=== PATIENT | female | born 1930 | race Caucasian/White ===

== ENCOUNTER 2016-06-09 12:00 | Emergency (ER) | payer OTHER ==
--- NOTE | 2016-06-09 12:16 | ED Physician Documentation ---
General Adult - HISTORIAN Historian: patient - HPI Stated Complaint: fall, back & hip pain Chief Complaint: General Adult Onset: days ago (1) Timing: still present Severity: moderate Further Comments: yes (Pt is an 86 yo female who ambulates with walker and fell at home yesterday. Pt c/o LBP and b/l hip pain.) - ROS CONST: no problems EYES/ENT: none CVS/RESP: none GI/: none MS/SKIN/LYMPH: other (skin tear L elbow s/p fall) - PAST HX Past History: other (Anxiety, COPD, GERD, HTN, Thyroid dz, ) Surgeries/Procedures: hysterectomy, other (appendectomy, thyroidectomy) Allergies/Adverse Reactions: Allergies Allergy/AdvReac Type Severity Reaction Status Date / Time codeine [Codeine] Allergy Severe Hallucinati Verified 08/06/15 12:07 ons Home Medications: Ambulatory Orders Medication Instructions Recorded Aspirin [Westley] 81 mg PO DAILY 30 Days 08/28/12 Ipratropium/Albuterol Sulfate 3 ml INH QID 08/06/15 [Duoneb] Pramipexole Di-HCl [Mirapex] 0.125 mg PO PM 08/06/15 - SOCIAL HX Smoking History: cigarettes - FAMILY HX Family History: No - VITAL SIGNS Vital Signs: Vital Signs Temp Pulse Resp BP Pulse Ox 208/102 08/06/15 12:25 - REVIEWED ASSESSMENTS Nursing Assessment Reviewed: Yes Vitals Reviewed: Yes Progress - Progress Progress: X-ray L-spine: 1. Spondylosis. 2. Levoscoliosis. 3. Compression fracture of T11 that appears old. 4. Degenerative anterolisthesis at L3-4. Rx Austin (5/325) 1-2 po q 4-6h prn # 15 Skin tear dressed in ER. General Adult Physical Exam - PHYSICAL EXAM GENERAL APPEARANCE: moderate distress EENT: eye inspection normal NECK: normal inspection, supple RESPIRATORY: no resp distress, chest non-tender, breath sounds normal CVS: reg rate & rhythm, heart sounds normal ABDOMEN: soft, no organomegaly, normal bowel sounds BACK: normal inspection, other (tenderness over lumbar spine; ) SKIN: other (small skin tear L elbow) EXTREMITIES: other (hips FROM b/l; no abnormal rotation; ) NEURO: oriented X3, motor nml, sensation nml, other (DTR's wnl) Discharge Clincal Impression: Low back pain Qualifiers: Chronicity: acute Back pain laterality: unspecified Sciatica presence: without sciatica Qualified Code(s): M54.5 - Low back pain Skin tear of left elbow without complication Qualifiers: Encounter type: initial encounter Qualified Code(s): S51.002A - Unspecified open wound of left elbow, initial encounter Fall Qualifiers: Encounter type: initial encounter Qualified Code(s): W19.XXXA - Unspecified fall, initial encounter Referrals: Joie Gale PRN [Primary Care Provider] - Additional Instructions: Rx Austin (). Take one or two tablets by mouth every 4 to 6 hrs as needed for moderate to severe pain. Home Medications: Ambulatory Orders Aspirin [Westley] 81 mg PO DAILY 30 Days 08/28/12 Ipratropium/Albuterol Sulfate [Duoneb] 3 ml INH QID 08/06/15 Pramipexole Di-HCl [Mirapex] 0.125 mg PO PM 08/06/15 Condition: Stable Disposition: 01 HOME, SELF-CARE Decision to Admit: NO Decision Time: 12:55
[2016-06-09 13:21] VITALS: BP 135/79
--- NOTE | 2016-06-09 13:23 | Diagnostic Imaging Report ---
[facility] [address] [facility].[address] [address] Report Submission Date: Jun 09, 2016 12:43:29 PM [employer] Patient Study Name: BASIM PENA Date: Jun 09, 2016 12:29:11 PM [employer] MRN: [id number] Modality Type: CR Gender: F Description: SPINE : [birth year] Institution: [facility] Physician: LITZY KENNY Lumbar spine - three views Clinical history: Fall on Friday. Low back pain. Findings: Examination lumbar spine in AP, lateral and lateral coned-down views demonstrates degenerative changes and levoscoliosis. The apex of the scoliosis is at L1-2. The disc spaces are narrowed at L1-2 and L2-3. Degenerative anterolisthesis at L3-4 measures 8 mm. Degenerative changes are seen in the visualized lower thoracic spine with compression fracture of T11 that appears to be old. Extensive vascular calcification is demonstrated. Impression: 1. Spondylosis. 2. Levoscoliosis. 3. Compression fracture of T11 that appears old. 4. Degenerative anterolisthesis at L3-4. Electronically signed on Jun 09, 2016 12:43:29 PM [employer]ER by: Derek NEVAREZ
== END 2016-06-09 13:19 | disposition home or self-care (01) ==
LOC: ED 12:00
DX: M54.5 Low back pain (principal); S51.002A Unspecified open wound of left elbow, initial encounter; W19.XXXA Unspecified fall, initial encounter; Y93.9 Activity, unspecified; Y99.9 Unspecified external cause status
CPT/HCPCS: 72100; 99282

== ENCOUNTER 2016-08-31 23:08 | Emergency (ER) | payer OTHER ==
--- NOTE | 2016-08-31 23:13 | ED Physician Documentation ---
General Adult - HISTORIAN Historian: patient, paramedics - HPI Stated Complaint: SOB Chief Complaint: General Adult Additional Information: EMS called to [facility] because pt said to be SOB. Pulse ox 82% on ambient air. Pt given Duoneb in ambulance. Pulse ox 98% on ambient air. Says her mouth is dry. - ROS CONST: denies: fever - PAST HX Past History: COPD Allergies/Adverse Reactions: Allergies Allergy/AdvReac Type Severity Reaction Status Date / Time codeine [Codeine] Allergy Severe Hallucinati Verified 08/31/16 23:24 ons Home Medications: Ambulatory Orders Medication Instructions Recorded Aspirin [Westley] 81 mg PO DAILY 30 Days 08/28/12 Ipratropium/Albuterol Sulfate 3 ml INH QID 08/06/15 [Duoneb] Pramipexole Di-HCl [Mirapex] 0.125 mg PO PM 08/06/15 Levothyroxine Sodium [Unithroid] 100 mcg PO QDAY 08/31/16 - SOCIAL HX Smoking History: non-smoker - FAMILY HX Family History: No - VITAL SIGNS Vital Signs: Vital Signs Temp Pulse Resp BP Pulse Ox 135/79 06/09/16 13:19 - REVIEWED ASSESSMENTS Nursing Assessment Reviewed: Yes Vitals Reviewed: Yes Progress - Progress Progress: Portable chest History: Shortness of breath and COPD Findings: The lungs are hyperinflated without infiltrate or pleural effusion. A calcified left lung granuloma is present. Heart size is normal. Impression: Hyperinflation. Electronically signed on Aug 31, 2016 11:51:00 PM CDT by: Leandro Torrez [id number]. remains at 94% on room air. Labs good. Family has duonebs at home. ED Results Lab/Radiology - Orders Orders: ED Orders Category Date Time Status Continuous EKG monitoring Q1H Care 08/31/16 23:10 Ordered Continuous Pulse Oximetry Q1H Care 08/31/16 23:[address] Saline Lock/IV Now Care 08/31/16 23:10 Ordered CHEST 1 VIEW [RAD] Stat Exams 08/31/16 Ordered CBC/PLATELET/DIFF Routine Lab 08/31/16 Ordered CMP Routine Lab 08/31/16 Ordered UA [URINALYSIS] Routine Lab 08/31/16 Ordered 0.9 % Sodium Chloride [Normal Saline] 1,000 ml Med 08/31/16 23:30 Ordered IV 1T EKG WITH COMPARISON Stat Ther 08/31/16 Ordered General Adult Physical Exam - PHYSICAL EXAM GENERAL APPEARANCE: no distress EENT: eye inspection normal, ENT inspection normal, pharynx normal, other (lips dry) NECK: normal inspection, supple RESPIRATORY: no resp distress, breath sounds normal (decreased throughout), rales (scattered) CVS: reg rate & rhythm, heart sounds normal ABDOMEN: soft, normal bowel sounds RECTAL: deferred BACK: normal inspection SKIN: warm/dry, normal color EXTREMITIES: no evidence of injury, no edema NEURO: CN's nml as tested, motor nml, sensation nml Discharge Clincal Impression: copd Additional Instructions: Drink plenty of water. Follow up with your provider as needed. Home Medications: Ambulatory Orders Aspirin [Westley] 81 mg PO DAILY 30 Days 08/28/12 Ipratropium/Albuterol Sulfate [Duoneb] 3 ml INH QID 08/06/15 Pramipexole Di-HCl [Mirapex] 0.125 mg PO PM 08/06/15 Levothyroxine Sodium [Unithroid] 100 mcg PO QDAY 08/31/16 Condition: Good Disposition: 01 HOME, SELF-CARE Decision to Admit: NO Decision Time: 00:34
[2016-08-31] MEDS ORDERED: 0.9 % SODIUM CHLORIDE 1,000 ML IV SCH (23:30)
[2016-09-01 00:07] LABS: BASOPHILS % 0.2 (0.0-1.5); EOSINOPHILS % 1.8 % (0.0-6.8); MEAN CORPUSCULAR HEMOGLOBIN 29.8 pg (28.0-34.0); MEAN CORPUSCULAR VOLUME 91.4 fl (80.0-100.0); MONOCYTES % 6.2 % (0.0-11.0)
[2016-09-01 00:26] LABS: eGFR (African) > 60; eGFR (Non-African) > 60
--- NOTE | 2016-09-01 00:49 | Diagnostic Imaging Report ---
[facility] [address] [facility].[address] [address] Report Submission Date: Aug 31, 2016 11:51:00 PM CDT Patient Study Name: BASIM PENA Date: Aug 31, 2016 11:31:12 PM CDT MRN: [id number] Modality Type: CR Gender: F Description: CHEST : [birth year] Institution: [facility] Physician: RENEE SEO - ER Portable chest History: Shortness of breath and COPD Findings: The lungs are hyperinflated without infiltrate or pleural effusion. A calcified left lung granuloma is present. Heart size is normal. Impression: Hyperinflation. Electronically signed on Aug 31, 2016 11:51:00 PM CDT by: Leandro NEVAREZ
[2016-09-01 02:12] VITALS: BP 145/67
== END 2016-09-01 00:20 | disposition home or self-care (01) ==
LOC: ED 23:08
DX: J44.9 Chronic obstructive pulmonary disease, unspecified (principal)
CPT/HCPCS: 71010; 80053; 85025; 96360; 99283; 99284

== ENCOUNTER 2017-01-02 13:09 | Emergency (ER) | payer OTHER ==
[2017-01-02 13:22] LABS: BASOPHILS % 0.3 (0.0-1.5); EOSINOPHILS % 1.2 % (0.0-6.8); MEAN CORPUSCULAR HEMOGLOBIN 30.2 pg (28.0-34.0); MONOCYTES % 4.2 % (0.0-11.0); NEUTROPHILS # 9.6 # k/uL (1.4-7.7)
[2017-01-02 13:40] LABS: eGFR (African) > 60; eGFR (Non-African) > 60
--- NOTE | 2017-01-02 14:38 | ED Physician Documentation ---
Dyspnea - HISTORIAN Historian: patient - HPI Stated Complaint: Shortness of Breath Chief Complaint: Dyspnea Onset: days ago Duration: worse Severity: moderate Exacerbated By: coughing Further Comments: yes (86 year old female patient brought in via EMS with complaints of dyspnea. Patient was given albuterol and duoneb in route. RA Sats 96%. Patient reports symptoms started yesterday and have become worse.) - ROS CONST: recent illness (COPD), weakness EYES/ENT: none GI/: none NEURO/PSYCH: denies: headache MS/SKIN/LYMPH: none - PAST HX Lung Disease: COPD Other History: other (hypothyroidism) Allergies/Adverse Reactions: Allergies Allergy/AdvReac Type Severity Reaction Status Date / Time codeine [Codeine] Allergy Severe Hallucinati Verified 08/31/16 23:24 ons Home Medications: Ambulatory Orders Medication Instructions Recorded Aspirin [Westley] 81 mg PO DAILY 30 Days tab.chew 08/28/12 Ipratropium/Albuterol Sulfate 3 ml INH QID 08/06/15 [Duoneb] Pramipexole Di-HCl [Mirapex] 0.125 mg PO PM 08/06/15 Levothyroxine Sodium [Unithroid] 100 mcg PO QDAY 08/31/16 Prednisone 30 mg PO DAILY #12 tablet 01/02/17 - SOCIAL HX Smoking History: cigarettes - FAMILY HX Family History: denies: none - VITAL SIGNS Vital Signs: Vital Signs Temp Pulse Resp BP Pulse Ox 97.1 F L 99 H 32 H 185/101 96 01/02/17 13:10 01/02/17 13:10 01/02/17 13:10 01/02/17 13:10 01/02/17 14:15 - REVIEWED ASSESSMENTS Nursing Assessment Reviewed: Yes Vitals Reviewed: Yes Progress - Progress Progress: Lab and xray results reviewed with patient and family. Daughter cannot recall last steroid usage. Will given IV steroid dose in ER and short burst of prednisone. Family reports continued weight loss, patient will not eat, have tried multiple protein shakes and ensure. Working with PCP on weight gain. RA Sats 93-94%. ED Results Lab/Radiology - Lab Results Lab Results: Lab Results 01/02/17 01/02/17 13:20 13:20 WBC 12.00 K/ul K/ul (4.00-12.00) RBC 4.81 M/ul M/ul (3.90-5.20) Hgb 14.5 g/dL g/dL (12.0-16.0) Hct 43.3 % % (34.5-46.5) MCV 90.0 fl fl (80.0-100.0) MCH 30.2 pg pg (28.0-34.0) MCHC 33.6 g/dL g/dL (30.0-36.0) RDW 13.5 % % (11.3-14.3) Plt Count 251 K/mm3 K/mm3 (130-400) Neut % (Auto) 79.8 % H % (39.0-79.0) Lymph % (Auto) 13.1 % L % (16.0-50.0) Perry % (Auto) 4.2 % % (0.0-11.0) Eos % (Auto) 1.2 % % (0.0-6.8) Baso % (Auto) 0.3 (0.0-1.5) Neut # (Auto) 9.6 # k/uL H # k/uL (1.4-7.7) Lymph # (Auto) 1.6 # k/uL # k/uL (0.6-4.0) Perry # (Auto) 0.5 # k/uL # k/uL (0.0-0.9) Eos # (Auto) 0.1 # k/uL # k/uL (0.0-0.6) Baso # (Auto) 0.0 # k/uL # k/uL (0.0-0.5) Reactive Lymphs % 1.4 % % (0.0-5.0) Reactive Lymphs # 0.2 # k/uL # k/uL (0.0-0.8) Sodium 133 mmol/L L mmol/L (136-145) Potassium 4.2 mmol/L mmol/L (3.5-5.0) Chloride 99 mmol/L mmol/L (98-110) Carbon Dioxide 25 mmol/L mmol/L (20-32) BUN 17 mg/dL mg/dL (10-26) Creatinine 0.6 mg/dL mg/dL (0.4-1.5) Estimated Creat Clear 60 Est GFR ( Amer) > 60 (60 - ) Est GFR (Non-Af Amer) > 60 (60 - ) Glucose 104 mg/dL H mg/dL (70-99) Calcium 9.6 mg/dL mg/dL (8.5-10.5) Total Bilirubin 0.8 mg/dL mg/dL (0.2-1.2) AST 55 U/L H U/L (0-41) ALT 37 U/L U/L (0-45) Alkaline Phosphatase 102 U/L U/L (46-116) Total Protein 7.2 g/dL g/dL (6.0-8.5) Albumin 4.8 g/dL g/dL (3.0-5.5) - Radiology Radiology Impressions: Chest -one view CLINICAL HISTORY: Dyspnea. FINDINGS: Examination of the chest single portable AP view 01/02/2017 1328 hr with comparison to examination of 08/31/2016 demonstrates the lungs to be hyperinflated but clear. Cardiac silhouette is enlarged and the aorta is atherosclerotic. Monitor leads superimpose the chest. IMPRESSION: Emphysema. Aortic atherosclerosis. No significant change. - Orders Orders: ED Orders Category Date Time Status Continuous Pulse Oximetry Q30M Care 01/02/17 13:[address] IV Lock 1T Care 01/02/17 13:15 Completed CHEST 1 VIEW [RAD] Stat Exams 01/02/17 13:15 Ordered CBC/PLATELET/DIFF Stat Lab 01/02/17 13:20 Completed CMP Stat Lab 01/02/17 13:20 Completed Oxygen Daily Oxygen 01/02/17 13:15 Ordered Dyspnea Physical Exam - EXAM General Appearance: moderate distress, other (frail, thin ) EENT: eye inspection normal, ENT inspection normal, pharynx normal, no signs of dehydration, JACKIE, no nystagmus, TM's nml Respiratory: no resp. distress, breath sounds nml, no pain on inspiration, speaks full sentences, accessory muscle use, other (mildly labored respirations) CVS: reg. rate & rhythm, no murmur, no gallop, no friction rub, pulses full, pulses equal Abdomen: non-tender, no organomegaly, no distention, no ascites Skin: no rash, warm, nml palp., dry Extremities: non-tender, normal range of motion, no evidence of injury, no edema , other (muscle wasting) Neuro/Psych: oriented x3, motor nml, sensation nml, mood/affect nml Discharge Clincal Impression: COPD exacerbation Prescriptions: Prednisone 30 mg PO DAILY #12 tablet Referrals: Joie Gale PRN [Primary Care Provider] - 2 Days Additional Instructions: Start your prednisone tomorrow. Make a follow up appointment with Taty for Friday. Home Medications: Ambulatory Orders Aspirin [Westley] 81 mg PO DAILY 30 Days tab.chew 08/28/12 Ipratropium/Albuterol Sulfate [Duoneb] 3 ml INH QID 08/06/15 Pramipexole Di-HCl [Mirapex] 0.125 mg PO PM 08/06/15 Levothyroxine Sodium [Unithroid] 100 mcg PO QDAY 08/31/16 Prednisone 30 mg PO DAILY #12 tablet 01/02/17 Condition: Stable Disposition: 01 HOME, SELF-CARE Decision to Admit: NO Decision Time: 15:21
[2017-01-02] MEDS: methylPREDNISolone SOD SUCC 125 MG/2 ML VIAL IVP ONE (15:05)
--- NOTE | 2017-01-02 15:13 | Diagnostic Imaging Report ---
DENIZ GUTIERREZ (GAIL) - ER [facility] [address] [facility].[address] [address] Report Submission Date: Jan 02, 2017 1:59:51 PM CDT Patient Study Name: BASIM PENA Date: Jan 02, 2017 1:28:48 PM CDT MRN: [id number] Modality Type: CR Gender: F Description: CHEST : [birth year] Institution: [facility] Physician: DENIZ GUTIERREZ) - ER Chest -one view CLINICAL HISTORY: Dyspnea. FINDINGS: Examination of the chest single portable AP view 01/02/2017 1328 hr with comparison to examination of 08/31/2016 demonstrates the lungs to be hyperinflated but clear. Cardiac silhouette is enlarged and the aorta is atherosclerotic. Monitor leads superimpose the chest. IMPRESSION: Emphysema. Aortic atherosclerosis. No significant change. Electronically signed on Jan 02, 2017 1:59:51 PM CDT by: Derek NEVAREZ
[2017-01-02 15:49] VITALS: BP 150/68
== END 2017-01-02 15:46 | disposition home or self-care (01) ==
LOC: ED 13:09
DX: J44.1 Chronic obstructive pulmonary disease with (acute) exacerbation (principal)
CPT/HCPCS: 71010; 80053; 85025; J2930; 96374; 99283

== ENCOUNTER 2017-01-06 03:10 | Emergency (ER) | payer OTHER ==
[2017-01-06 04:06] LABS: MEAN CORPUSCULAR HEMOGLOBIN 30.1 pg (28.0-34.0); MEAN CORPUSCULAR VOLUME 90.9 fl (80.0-100.0)
[2017-01-06 04:16] LABS: eGFR (African) > 60; eGFR (Non-African) > 60
[2017-01-06] MEDS ORDERED: IPRATROPIUM/ALBUTEROL SULFATE 3 ML AMPUL.NEB NEB ONE ×2 (04:33→04:40)
--- NOTE | 2017-01-06 04:42 | ED Physician Documentation ---
Dyspnea - HISTORIAN Historian: patient, paramedics, child - HPI Chief Complaint: Dyspnea Onset: hours Duration: continues in ED Initiating Event: upper respiratory illness Exacerbated By: exertion Further Comments: yes (86 year old female patient brought in via EMS with complaints of dyspnea. Duoneb given in route. O2 at 1L on arrival with 96% sat. Reviewed previous ER records, patient seen for similar complaints on 2016 - discharged home on 30mg po prednisone x 4 days. Family reports patient has continued to smoke and drink ETOH daily. Cannot quantify.) - ROS CONST: recent illness EYES/ENT: none GI/: none NEURO/PSYCH: denies: headache MS/SKIN/LYMPH: none - PAST HX Lung Disease: COPD Allergies/Adverse Reactions: Allergies Allergy/AdvReac Type Severity Reaction Status Date / Time codeine [Codeine] Allergy Severe Hallucinati Verified 01/06/17 04:17 ons Home Medications: Ambulatory Orders Medication Instructions Recorded Aspirin [Westley] 81 mg PO DAILY 30 Days tab.chew 08/28/12 Ipratropium/Albuterol Sulfate 3 ml INH QID 08/06/15 [Duoneb] Pramipexole Di-HCl [Mirapex] 0.125 mg PO PM 08/06/15 Levothyroxine Sodium [Unithroid] 100 mcg PO QDAY 08/31/16 Prednisone 30 mg PO DAILY #12 tablet 01/02/17 Melatonin [Melatonin] 5 mg PO HS 01/06/17 - VITAL SIGNS Vital Signs: Vital Signs Temp Pulse Resp BP Pulse Ox 150/68 01/02/17 15:46 Progress - Progress Progress: Family reports patient will take deep breaths with breathing treatments at home. ED Results Lab/Radiology - Lab Results Lab Results: Lab Results 01/06/17 01/06/17 03:59 03:59 WBC 8.40 K/ul K/ul (4.00-12.00) RBC 4.71 M/ul M/ul (3.90-5.20) Hgb 14.2 g/dL g/dL (12.0-16.0) Hct 42.8 % % (34.5-46.5) MCV 90.9 fl fl (80.0-100.0) MCH 30.1 pg pg (28.0-34.0) MCHC 33.1 g/dL g/dL (30.0-36.0) RDW 13.6 % % (11.3-14.3) Plt Count 294 K/mm3 K/mm3 (130-400) Sodium 135 mmol/L L mmol/L (136-145) Potassium 3.8 mmol/L mmol/L (3.5-5.0) Chloride 98 mmol/L mmol/L (98-110) Carbon Dioxide 30 mmol/L mmol/L (20-32) BUN 23 mg/dL mg/dL (10-26) Creatinine 0.7 mg/dL mg/dL (0.4-1.5) Est GFR ( Amer) > 60 (60 - ) Est GFR (Non-Af Amer) > 60 (60 - ) Glucose 151 mg/dL H mg/dL (70-99) Calcium 9.4 mg/dL mg/dL (8.5-10.5) Total Bilirubin 0.4 mg/dL mg/dL (0.2-1.2) AST 36 U/L U/L (0-41) ALT 59 U/L H U/L (0-45) Alkaline Phosphatase 93 U/L U/L (46-116) Total Protein 7.4 g/dL g/dL (6.0-8.5) Albumin 4.4 g/dL g/dL (3.0-5.5) - Radiology Radiology Impressions: HISTORY: 86-year-old female smoker with shortness of breath. COMPARISON: Chest x-ray dated 01/02/2017 TECHNIQUE: 2 views of the chest were performed. FINDINGS: The lungs are hyperexpanded. No pneumothorax, consolidative infiltrates, pleural effusions, or pulmonary edema. The heart is not enlarged. The humeral heads are high-riding, abutting the undersurfaces of the acromions. There are postoperative changes of the right shoulder. The bones are diffusely osteopenic. There is a chronic compression versus burst fracture of a lower thoracic vertebral body. IMPRESSION: 1. Pulmonary hyperexpansion consistent with emphysema. 2. No evidence of acute intrathoracic process. 3. Nonacute findings as detailed above. - Orders Orders: ED Orders Category Date Time Status Place IV Lock 1T Care 01/06/17 03:54 Active CHEST 2 VIEW [CHEST P.A.&LAT 2 VIEWS] [RAD] Stat Exams 01/06/17 Ordered CBC/PLATELET/DIFF Stat Lab 01/06/17 03:59 Completed CMP Stat Lab 01/06/17 03:59 Completed UA W/MICRO IF INDICATED Stat Lab 01/06/17 03:54 Ordered Ipratropium/Albuterol Sulfate [Duoneb] Med 01/06/17 04:33 Discontinued 3 ml NEB .STK-MED ONE Ipratropium/Albuterol Sulfate [Duoneb] Med 01/06/17 04:40 Once 3 ml NEB NOW ONE Dyspnea Physical Exam - EXAM General Appearance: no acute distress, alert EENT: eye inspection normal, JACKIE Respiratory: no resp. distress, no pain on inspiration, speaks full sentences, decreased air movement (bases) CVS: reg. rate & rhythm, no murmur, no gallop, no friction rub, pulses full, pulses equal Abdomen: non-tender, no organomegaly, no distention, no ascites Skin: color nml, no rash, warm, nml palp., dry Extremities: non-tender, normal range of motion, no evidence of injury, no edema , other (muscle wasting noted. ) Neuro/Psych: oriented x3, CN's nml as tested, motor nml, sensation nml, mood/ affect nml Discharge Clincal Impression: Dyspnea on exertion COPD (chronic obstructive pulmonary disease) Qualifiers: COPD type: emphysema Emphysema type: panlobular Qualified Code(s): J43.1 - Panlobular emphysema Home Medications: Ambulatory Orders Aspirin [Westley] 81 mg PO DAILY 30 Days tab.chew 08/28/12 Ipratropium/Albuterol Sulfate [Duoneb] 3 ml INH QID 08/06/15 Pramipexole Di-HCl [Mirapex] 0.125 mg PO PM 08/06/15 Levothyroxine Sodium [Unithroid] 100 mcg PO QDAY 08/31/16 Prednisone 30 mg PO DAILY #12 tablet 01/02/17 Melatonin [Melatonin] 5 mg PO HS 01/06/17 Condition: Stable Disposition: 01 HOME, SELF-CARE Decision to Admit: NO Decision Time: 04:45
[2017-01-06 05:13] VITALS: BP 144/76
--- NOTE | 2017-01-06 06:33 | Diagnostic Imaging Report ---
DENIZ GUTIERREZ (GAIL) - ER [facility] [address] [facility] [address] [place], [place]. [address] Report Submission Date: Jan 06, 2017 4:37:38 AM CDT Patient Study Name: BASIM PENA Date: Jan 06, 2017 4:15:14 AM CDT MRN: [id number] Modality Type: CR Gender: F Description: CHEST : [birth year] Institution: [facility] Physician: DENIZ GUTIERREZ) - ER HISTORY: 86-year-old female smoker with shortness of breath. COMPARISON: Chest x-ray dated 01/02/2017 TECHNIQUE: 2 views of the chest were performed. FINDINGS: The lungs are hyperexpanded. No pneumothorax, consolidative infiltrates, pleural effusions, or pulmonary edema. The heart is not enlarged. The humeral heads are high-riding, abutting the undersurfaces of the acromions. There are postoperative changes of the right shoulder. The bones are diffusely osteopenic. There is a chronic compression versus burst fracture of a lower thoracic vertebral body. IMPRESSION: 1. Pulmonary hyperexpansion consistent with emphysema. 2. No evidence of acute intrathoracic process. 3. Nonacute findings as detailed above. Electronically signed on Jan 06, 2017 4:37:38 AM CDT by: Zoran NEVAREZ
[2017-01-06 09:15] LABS: SEGMENTED NEUTROPHILS % 62 % (39-79)
[2017-01-06 09:16] LABS: EOSINOPHILS % 1 % (0-7); MONOCYTES % 7 % (0-11)
== END 2017-01-06 04:59 | disposition home or self-care (01) ==
LOC: ED 03:10
DX: R06.09 Other forms of dyspnea (principal); J43.1 Panlobular emphysema
CPT/HCPCS: 71020; 80053; 85025; 99284; S1016

== ENCOUNTER 2017-02-03 01:55 | Emergency (ER) | payer OTHER ==
[2017-02-03] MEDS: IPRATROPIUM/ALBUTEROL SULFATE 3 ML AMPUL.NEB NEB ONE (02:15)
[2017-02-03] MEDS ORDERED: methylPREDNISolone SOD SUCC 125 MG/2 ML VIAL ONE (02:19)
[2017-02-03] MEDS: methylPREDNISolone SOD SUCC 125 MG/2 ML VIAL IVP PRN (02:30)
[2017-02-03 02:43] LABS: BASOPHILS % 0.3 (0.0-1.5); EOSINOPHILS % 2.4 % (0.0-6.8); MEAN CORPUSCULAR HEMOGLOBIN 28.9 pg (28.0-34.0); MEAN CORPUSCULAR VOLUME 88.5 fl (80.0-100.0); MONOCYTES % 4.8 % (0.0-11.0); NEUTROPHILS # 8.7 # k/uL (1.4-7.7)
[2017-02-03 03:26] LABS: eGFR (African) > 60; eGFR (Non-African) > 60
[2017-02-03] MEDS ORDERED: IPRATROPIUM/ALBUTEROL SULFATE 3 ML AMPUL.NEB NEB ONE (03:47)
[2017-02-03 04:09] VITALS: BP 154/53
--- NOTE | 2017-02-03 06:52 | Diagnostic Imaging Report ---
JUANITA REESE [facility] [address] [facility] [address] [address] Report Submission Date: Feb 03, 2017 3:36:47 AM CDT Patient Study Name: BASIM PENA Date: Feb 03, 2017 3:12:44 AM CDT MRN: [id number] Modality Type: CR Gender: F Description: CHEST : [birth year] Institution: [facility] Physician: JUANITA REESE Chest - one-view Clinical history: Shortness of breath. Dyspnea. Findings: Examination of the chest single portable AP view 02/03/2017 0312 hours with comparison to examination of 01/06/2017 demonstrates lungs to be hyperinflated but clear. Cardiac silhouette is enlarged and the aorta is atherosclerotic. Monitor leads superimpose the chest. Bony thorax is intact. Degenerative changes are seen in the right shoulder superior migration right humeral head consistent with chronic rotator cuff tear. Impression: 1. Emphysema. 2. Cardiomegaly and aortic atherosclerosis. 3. No significant change. Electronically signed on Feb 03, 2017 3:36:47 AM CDT by: Derek NEVAREZ
--- NOTE | 2017-02-03 07:48 | ED Physician Documentation ---
Dyspnea - HISTORIAN Historian: patient - HPI Stated Complaint: SOA Chief Complaint: Dyspnea Additional Information: exab chronic copd-pt still smokes Onset: hours (progressive past few days ) Duration: continues in ED Initiating Event: exercise, exposure to smoke Severity: moderate Exacerbated By: change in position, exertion, coughing - ROS CONST: no problems GI/: none NEURO/PSYCH: denies: headache MS/SKIN/LYMPH: none - PAST HX Lung Disease: COPD Surgeries/Procedures: cholecystectomy, hysterectomy Allergies/Adverse Reactions: Allergies Allergy/AdvReac Type Severity Reaction Status Date / Time codeine [Codeine] Allergy Severe Hallucinati Verified 02/03/17 02:15 ons Home Medications: Ambulatory Orders Medication Instructions Recorded Aspirin [Westley] 81 mg PO DAILY 30 Days tab.chew 08/28/12 Ipratropium/Albuterol Sulfate 3 ml INH QID 08/06/15 [Duoneb] Pramipexole Di-HCl [Mirapex] 0.125 mg PO PM 08/06/15 Levothyroxine Sodium [Unithroid] 100 mcg PO QDAY 08/31/16 Melatonin [Melatonin] 5 mg PO HS 01/06/17 - SOCIAL HX Smoking History: cigarettes, greater than 1 pack/day Alcohol Use: occasionally Drug Use: none - FAMILY HX Family History: no significant history - VITAL SIGNS Vital Signs: Vital Signs Temp Pulse Resp BP Pulse Ox 71 20 185/83 96 02/03/17 01:55 02/03/17 01:55 02/03/17 01:55 02/03/17 01:55 - REVIEWED ASSESSMENTS Nursing Assessment Reviewed: Yes Vitals Reviewed: Yes ED Results Lab/Radiology - Radiology Radiology Impressions: cxr=copd asvd cardiomegally - Orders Orders: ED Orders Category Date Time Status Place IV Lock 1T Care 02/03/17 02:18 Active CBC/PLATELET/DIFF Routine Lab 02/03/17 Ordered Ipratropium/Albuterol Sulfate [Duoneb] Med 02/03/17 02:13 Discontinued 3 ml NEB NOW ONE methylPREDNISolone SOD SUCC [Solu-MEDROL] Med 02/03/17 02:15 Ordered 125 mg IVP NOW PRN Oxygen Daily Oxygen 02/03/17 02:15 Ordered Dyspnea Physical Exam - EXAM General Appearance: mild distress, moderate distress EENT: eye inspection normal Neck: nml inspection Respiratory: speaks full sentences, respiratory distress, prolonged expirations , decreased air movement. No: no resp. distress, breath sounds nml CVS: reg. rate & rhythm Abdomen: non-tender, no distention Skin: color nml, no rash. No: cyanosis, diaphoresis Extremities: non-tender, normal range of motion Neuro/Psych: oriented x3, motor nml, sensation nml, mood/affect nml Discharge Clincal Impression: ac exaberation copd, nicotine abuse Referrals: Joie Gale PRN [Primary Care Provider] - 2 Days Comments: needs quid smoking Condition: Good Disposition: HOME, SELF-CARE Decision to Admit: NO Decision Time: 03:54
== END 2017-02-03 04:25 | disposition home or self-care (01) ==
LOC: ED 01:55
DX: J44.1 Chronic obstructive pulmonary disease with (acute) exacerbation (principal); Z72.0 Tobacco use
CPT/HCPCS: 71010; 80053; 85025; J2930; 96374; 99283; S1016

== ENCOUNTER 2017-05-12 09:00 | Inpatient (IN) | payer OTHER ==
[2017-05-12] MEDS ORDERED: oxyCODONE/ACETAMINOPHEN 5/325 TABLET PO ONE (09:40)
--- NOTE | 2017-05-12 09:43 | ED Physician Documentation ---
Hip Injury/Pain - HISTORIAN Historian: patient, child - HPI Stated Complaint: Hip Chief Complaint: Hip Pain Additional Information: This is an 86 year old female who is admitted with new onset of right hip pain that has been present for past few hours. She was at her daughter's house yesterday, and was doing well. She denies any falls or previous hip surgeries or pain. Onset: hours Where: family Severity: severe Duration: persistent since Context: no injury Symptoms Prior to Fall: none Other Injuries: none. denies: blow to head, loss of consciousness Subsequent Symptoms: denies: sensory loss - ROS CONST: no problems RESP: cough non-productive (chronic). denies: shortness of breath GI/: none EYES/ENT: none MS/SKIN/LYMPH: neck pain NEURO/PSYCH: confusion - PAST HX Cardiac Disease: none PE Risk Factors: hypertension Other History: denies: hip fracture Surgeries/Procedures: other (Hysterectomy) Immunizations: UTD Allergies/Adverse Reactions: Allergies Allergy/AdvReac Type Severity Reaction Status Date / Time codeine [Codeine] Allergy Severe Hallucinati Verified 05/12/17 11:00 ons Home Medications: Ambulatory Orders Medication Instructions Recorded Aspirin [Westley] 81 mg PO DAILY 30 Days tab.chew 08/28/12 Ipratropium/Albuterol Sulfate 3 ml INH QID 08/06/15 [Duoneb] Pramipexole Di-HCl [Mirapex] 0.125 mg PO PM 08/06/15 Levothyroxine Sodium [Unithroid] 100 mcg PO QDAY 08/31/16 Melatonin [Melatonin] 5 mg PO HS 01/06/17 - SOCIAL HX Smoking History: quit greater than 1 year Alcohol Use: none Drug Use: none - FAMILY HX Family History: Yes - VITAL SIGNS Vital Signs: Vital Signs Temp Pulse Resp BP Pulse Ox 97.1 F L 94 H 20 125/60 95 05/12/17 09:02 05/12/17 09:02 05/12/17 09:02 05/12/17 09:02 05/12/17 09:02 - REVIEWED ASSESSMENTS Nursing Assessment Reviewed: Yes Vitals Reviewed: Yes ED Results Lab/Radiology - Lab Results Lab Results: Lab Results 05/12/17 05/12/17 14:25 14:25 WBC 12.20 K/ul H K/ul (4.00-12.00) RBC 4.12 M/ul M/ul (3.90-5.20) Hgb 11.8 g/dL L g/dL (12.0-16.0) Hct 35.6 % % (34.5-46.5) MCV 86.3 fl fl (80.0-100.0) MCH 28.7 pg pg (28.0-34.0) MCHC 33.2 g/dL g/dL (30.0-36.0) RDW 13.3 % % (11.3-14.3) Plt Count 302 K/mm3 K/mm3 (130-400) Sodium 126 mmol/L L mmol/L (136-145) Potassium 4.5 mmol/L mmol/L (3.5-5.1) Chloride 91 mmol/L L mmol/L (98-107) Carbon Dioxide 27 mmol/L mmol/L (22-30) BUN 21 mg/dL H mg/dL (7-17) Creatinine 0.70 mg/dL mg/dL (0.52-1.04) Estimated Creat Clear 40 Est GFR ( Amer) > 60 (60 - ) Est GFR (Non-Af Amer) > 60 (60 - ) Glucose 108 mg/dL H mg/dL (74-106) Calcium 9.0 mg/dL mg/dL (8.4-10.2) Total Bilirubin 0.3 mg/dL mg/dL (0.2-1.3) AST 61 U/L H U/L (15-46) ALT 38 U/L U/L (13-69) Alkaline Phosphatase 95 U/L U/L (38-126) Total Protein 7.4 g/dL g/dL (6.3-8.2) Albumin 4.1 g/dL g/dL (3.5-5.0) - Orders Orders: ED Orders Category Date Time Status BILAT HIPS 2V (W/PEL IF DONE) [RAD] Routine Exams 05/12/[address] LEG W/O CONTRAST Stat Exams 05/12/17 Ordered KNEE 3 VIEWS [RAD] Stat Exams 05/12/17 Taken CBC PLATELETS NO DIFF Routine Lab 05/12/17 14:25 Completed CMP Routine Lab 05/12/17 14:25 Completed UA W/MICRO IF INDICATED Routine Lab 05/12/17 Ordered Ipratropium/Albuterol Sulfate [Duoneb] Med 05/12/17 13:35 Discontinued 3 ml NEB NOW ONE LORazepam [Ativan] Med 05/12/17 14:24 Discontinued 0.5 mg IVP NOW ONE LORazepam [Ativan] Med 05/12/17 14:12 Discontinued 2 mg .ROUTE .STK-MED ONE oxyCODONE HCL/ACETAMINOPHEN [Percocet 5-325 mg Tablet] Med 05/12/17 09:40 Discontinued 0.5 each PO NOW ONE Hip Injury/Pain Physical Exam - EXAM General Appearance: moderate distress Extremities: hip pain on leg movement (right) EENT: eye inspection normal, ENT inspection normal Neck: nml inspection, non-tender Respiratory: chest non-tender, decreased breath sounds, wheezes, rales CVS: reg rate & rhythm, heart sounds normal Abdomen: non-tender Back: non-tender Skin: warm/dry, other (decreased turgor) Rectal: No: other Neuro/Psych: weakness Discharge Clincal Impression: Hyponatremia Condition: Fair Disposition: ADMITTED INPATIENT Decision to Admit: [id number] Date of Decison to Admit: 05/12/17 Decision Time: 15:42
[2017-05-12] MEDS ORDERED: IPRATROPIUM/ALBUTEROL SULFATE 3 ML AMPUL.NEB NEB ONE (13:35)
[2017-05-12] MEDS ORDERED: LORazepam 2 MG/ML VIAL ONE (14:12)
[2017-05-12] MEDS ORDERED: LORazepam 2 MG/ML VIAL IVP ONE (14:24)
[2017-05-12 14:32] LABS: MEAN CORPUSCULAR HEMOGLOBIN 28.7 pg (28.0-34.0); MEAN CORPUSCULAR VOLUME 86.3 fl (80.0-100.0)
[2017-05-12 14:45] LABS: eGFR (African) > 60; eGFR (Non-African) > 60
--- NOTE | 2017-05-12 15:33 | History and Physical Report ---
History of Present Illnes - History of Present Illness Reason for Visit: Confusion/hyponatremia History of Present Illness: This is an 86 year old female who is admitted due to dehydration and ataxia. She had been slowly weaker over the past several weeks and this morning, was unable to stand, specifically with her right leg. She had not had any falls recently and was able to ambulate with a walker. She has been living with her grandson. She is not eating well, nor drinking well. She is noted to have a sodium of 126 today, and she is admitted due to hyponatremia, dehydration and family would like to be seen by social problems specialist tomorrow for evaluation for placement. 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: Other (Restless legs) Psych: Depression - Past Surgical History Past Surgical History: Appendectomy, Cataract Removal, Hysterectomy, Other ( Rotator cuff tear, unilateral oophorectomy) - Past Social History Smoke: 1 pack per day Alcohol: Rare Drugs: None Lives: With Family (Grandson) Domestic Violence: Negative - Health Maintenance Health Maintenance: Cholesterol Influenza Vaccine: Current for this Influenza Season Pneumonia Vaccine: Yes Resuscitation Status: Do not resuscitate - Unable to Obtain History Unable to Obtain: Yes Review of Systems - Review of Systems Constitutional: negative: Fever, Chills Eyes: negative: pain ENT: negative: Other Respiratory: Cough, Shortness of Breath. negative: Hemoptysis Cardiovascular: negative: Chest Pain Gastrointestinal: negative: Nausea Genitourinary: negative: Dysuria Musculoskeletal: negative: Neck Pain Skin: negative: Rash Neurological: Weakness, Confusion - Medications/Allergies Allergies/Adverse Reactions: Allergies Allergy/AdvReac Type Severity Reaction Status Date / Time codeine [Codeine] Allergy Severe Hallucinati Verified 05/12/17 11:00 ons Exam - Exam General: Oriented to Person, Cooperative HEENT: Atraumatic, PERRLA, Other (mucous membranes are extremely dry) Neck: No: Stridor Lungs: Wheezes, Decreased Air Movement Cardiovascular: Regular rate Murmur: Systolic Murmur Murmur Location: Left Sternal Boarder Heart Murmur Grade: II Abdomen: Normal bowel sounds, Soft, No tenderness Genitourinary: No: Other Male Genitourinary: No: Other Female Genitourinary: No: Other Integumentary: Normal, Decreased Turgor Extremities: No clubbing, No cyanosis, No edema, Other (Right knee will not fully extend) Neurological: Generalized Weakness Psych/Mental Status: No: Mental status NL, Intact Judgment Assessment/Plan - Assessment/Plan (1) Hyponatremia Status: Acute Current Visit: Yes Assessment: Likely due to dehydration (2) Right knee pain Status: Acute Current Visit: Yes Assessment: With no fracture on XR, could not perform CT as patient could not fully extend knee (3) COPD (chronic obstructive pulmonary disease) Status: Acute Current Visit: No Qualifiers: COPD type: emphysema Emphysema type: panlobular Qualified Code(s): 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
[2017-05-12] MEDS ORDERED: SERTRALINE HCL 50 MG TABLET PO SCH (16:00)
[2017-05-12] MEDS ORDERED: SALINE FLUSH 10 ML DISP.SYRIN IVF ONE (16:37)
[2017-05-12] MEDS ORDERED: 0.9 % SODIUM CHLORIDE 1,000 ML IV ONE (16:37)
[2017-05-12] MEDS: 0.9 % SODIUM CHLORIDE 1,000 ML IV SCH (16:55)
[2017-05-12] MEDS ORDERED: ENOXAPARIN SODIUM 30 MG/0.3 ML DISP.SYRIN SQ ONE (17:02)
[2017-05-12] MEDS ORDERED: SERTRALINE HCL 50 MG TABLET ONE (17:03)
[2017-05-12] MEDS: ENOXAPARIN SODIUM 30 MG/0.3 ML DISP.SYRIN SQ SCH (17:07)
[2017-05-12 17:16] VITALS: BMI 16.4
[2017-05-12] MEDS: IPRATROPIUM/ALBUTEROL SULFATE 3 ML AMPUL.NEB NEB SCH (19:12)
[2017-05-12] MEDS: rOPINIRole HCL 1 MG TABLET PO SCH (20:19)
--- NOTE | 2017-05-12 21:14 | Diagnostic Imaging Report ---
ZARA ARECHIGA [facility] [address] [facility] [address] [address] Report Submission Date: May 12, 2017 10:58:25 AM CONCRETE PRODUCTS DISPATCHER Patient Study Name: BASIM PENA Date: May 12, 2017 10:21:43 AM CONCRETE PRODUCTS DISPATCHER MRN: [id number] Modality Type: CR Gender: F Description: PELVIS : [birth year] Institution: [facility] Physician: ZARA ARECHIGA AP pelvis and bilateral hips History: Right hip pain Findings: Moderate right hip osteoarthritis is present. Vascular calcifications are observed. There is no fracture, dislocation, or focal bone lesion. Osteopenia is observed. Impression: Moderate right hip osteoarthritis, vascular calcifications, and osteopenia. Electronically signed on May 12, 2017 10:58:25 AM CONCRETE PRODUCTS DISPATCHER by: Leandro NEVAREZ
--- NOTE | 2017-05-12 21:15 | Diagnostic Imaging Report ---
HAIM ARECHIGA [facility] [address] [facility] [address] [place] [address]. [id number] Report Submission Date: May 12, 2017 7:37:34 PM ASSISTANT STORE MANAGER TRAINEE Patient Study Name: BASIM PENA Date: May 12, 2017 7:16:25 PM ASSISTANT STORE MANAGER TRAINEE MRN: [id number] Modality Type: CR Gender: F Description: CHEST : [birth year] Institution: [facility] Physician: HAIM ARECHIGA Portable chest CLINICAL HISTORY: COPD. FINDINGS: Examination of the chest single portable AP view 05/12/2017 1916 hr with comparison to examination of 02/03/2017 demonstrates lungs to be hyperinflated consistent with emphysema. Cardiovascular and mediastinal silhouettes are stable. The aorta is atherosclerotic. There are degenerative changes in the shoulders with superior migration of the humeral heads bilaterally. IMPRESSION: No significant change. Emphysema. Aortic atherosclerosis. Electronically signed on May 12, 2017 7:37:34 PM ASSISTANT STORE MANAGER TRAINEE by: Derek NEVAREZ
--- NOTE | 2017-05-12 21:15 | Diagnostic Imaging Report ---
HAIM ARECHIGA [facility] [address] [facility] [address] [address] Report Submission Date: May 12, 2017 12:09:16 PM OPERATOR HELPER Patient Study Name: BASIM PENA Date: May 12, 2017 11:37:33 AM OPERATOR HELPER MRN: [id number] Modality Type: CR Gender: F Description: LOWER EXTREMITY : [birth year] Institution: [facility] Physician: HAIM ARECHIGA Right knee 3 views Clinical history: Pain Technique AP lateral sunrise Findings: The knee is in flexion limiting evaluation. There is osteoarthritis patellofemoral joint and the joint space narrowing. Vascular calcification is present in the popliteal artery and femoral artery. No definite fracture line is seen. Proximal fibula is intact. Impression: Limited study with the knee in flexion Degenerative arthritis Vascular calcification Consider CT of the knee for further evaluation Electronically signed on May 12, 2017 12:09:16 PM OPERATOR HELPER by: Enrique NEVAREZ
[2017-05-12] MEDS: LORazepam 0.5 MG TABLET PO PRN (22:06)
[2017-05-13] MEDS: IPRATROPIUM/ALBUTEROL SULFATE 3 ML AMPUL.NEB NEB SCH ×4 (01:09→18:27)
[2017-05-13] MEDS ORDERED: 0.9 % SODIUM CHLORIDE 1,000 ML IV ONE ×3 (02:18→22:23)
[2017-05-13] MEDS: 0.9 % SODIUM CHLORIDE 1,000 ML IV SCH ×3 (02:22→22:28)
[2017-05-13] MEDS ORDERED: ASPIRIN EC 81 MG TABLET.DR ONE (05:12)
[2017-05-13] MEDS ORDERED: ENOXAPARIN SODIUM 30 MG/0.3 ML DISP.SYRIN SQ ONE (05:13)
[2017-05-13 07:41] LABS: eGFR (African) > 60; eGFR (Non-African) > 60
[2017-05-13] MEDS: LEVOTHYROXINE SODIUM 100 MCG TABLET PO SCH (08:42)
[2017-05-13] MEDS: ASPIRIN 81 MG CHEW TAB PO SCH (08:44)
--- NOTE | 2017-05-13 09:12 | Inpatient Progress Note ---
Subjective - Required Recertification Statement I anticipate X number of days because-include discharge plan: 3 - Review of Systems General: Denies: Chills HEENT: Denies: Head Aches Pulmonary: Dyspnea, Cough Cardiovascular: Denies: Chest Pain Gastrointestinal: Denies: Nausea, Vomiting Genitourinary: Denies: Dysuria Musculoskeletal: Leg Pain (Right knee (improved)). Denies: Neck Pain Neurological: Weakness, Confusion Objective - Exam Vitals and I&O: Vital Signs Temp 98 F 05/13/17 08:54 Pulse 100 H 05/13/17 08:54 Resp 26 H 05/13/17 08:54 BP 133/74 05/13/17 08:54 Pulse Ox 97 05/13/17 08:54 Intake & Output 05/12/17 05/12/17 05/13/17 11:59 23:59 11:59 Intake Total 60 Balance 60 Weight 39.463 kg Intake: Oral 60 Other: Voiding Method Diaper # Voids 1 # Bowel Movements 0 General: Oriented to Person, Discheveled HEENT: Atraumatic, PERRLA, EOMI Neck: No JVD Lungs: Wheezes, Decreased Air Movement Cardiovascular: Regular rate Abdomen: Normal bowel sounds, Soft, No tenderness Extremities: No clubbing, No cyanosis, No edema Skin: Normal, Other (turgor is much improved) Neurological: Generalized Weakness Psych/Mental Status: Mental status NL (at baseline) - Results Results: Laboratory Results WBC 12.20 K/ul (4.00-12.00) H 05/12/17 14:25 RBC 4.12 M/ul (3.90-5.20) 05/12/17 14:25 Hgb 11.8 g/dL (12.0-16.0) L 05/12/17 14:25 Hct 35.6 % (34.5-46.5) 05/12/17 14:25 MCV 86.3 fl (80.0-100.0) 05/12/17 14:25 MCH 28.7 pg (28.0-34.0) 05/12/17 14:25 MCHC 33.2 g/dL (30.0-36.0) 05/12/17 14:25 RDW 13.3 % (11.3-14.3) 05/12/17 14:25 Plt Count 302 K/mm3 (130-400) 05/12/17 14:25 Sodium 129 mmol/L (136-145) L 05/13/17 06:55 Potassium 3.9 mmol/L (3.5-5.1) 05/13/17 06:55 Chloride 94 mmol/L (98-107) L 05/13/17 06:55 Carbon Dioxide 27 mmol/L (22-30) 05/13/17 06:55 BUN 19 mg/dL (7-17) H 05/13/17 06:55 Creatinine 0.60 mg/dL (0.52-1.04) 05/13/17 06:55 Estimated Creat Clear 47 05/13/17 06:55 Est GFR ( Amer) > 60 (60-) 05/13/17 06:55 Est GFR (Non-Af Amer) > 60 (60-) 05/13/17 06:55 Glucose 96 mg/dL (74-106) 05/13/17 06:55 Calcium 8.0 mg/dL (8.4-10.2) L 05/13/17 06:55 Total Bilirubin 0.3 mg/dL (0.2-1.3) 05/12/17 14:25 AST 61 U/L (15-46) H 05/12/17 14:25 ALT 38 U/L (13-69) 05/12/17 14:25 Alkaline Phosphatase 95 U/L (38-126) 05/12/17 14:25 Total Protein 7.4 g/dL (6.3-8.2) 05/12/17 14:25 Albumin 4.1 g/dL (3.5-5.0) 05/12/17 14:25 Assessment/Plan - Assessment/Plan (1) Hyponatremia Status: Acute Current Visit: Yes Assessment: Improved (up to 129 today with hydration) (2) Right knee pain Status: Acute Current Visit: Yes Assessment: Improved and she can now fully extend it. 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 CXR shows no infiltrate (4) Fall Status: Acute Current Visit: No Qualifiers: Encounter type: initial encounter Qualified Code(s): W19.XXXA - Unspecified fall, initial encounter Assessment: Recurrent (5) Dehydration Status: Acute Current Visit: Yes Assessment: Improved (6) Generalized weakness Status: Acute Current Visit: Yes Assessment: Chronic, family feels that she is no longer safe to stay at home Plan: manager environmental services working on admission to [facility] on discharge
[2017-05-13] MEDS: LORazepam 0.5 MG TABLET PO PRN ×2 (10:25→18:23)
[2017-05-13] MEDS: ENOXAPARIN SODIUM 30 MG/0.3 ML DISP.SYRIN SQ SCH (15:49)
[2017-05-13] MEDS ORDERED: BISACODYL 10 MG SUPP.RECT RC PRN (18:12)
[2017-05-13] MEDS: rOPINIRole HCL 1 MG TABLET PO SCH (19:50)
[2017-05-14] MEDS: IPRATROPIUM/ALBUTEROL SULFATE 3 ML AMPUL.NEB NEB SCH ×4 (00:05→19:00)
[2017-05-14] MEDS: LEVOTHYROXINE SODIUM 100 MCG TABLET PO SCH (06:20)
[2017-05-14 07:26] LABS: BASOPHILS % 0.1 (0.0-1.5); EOSINOPHILS % 0.4 % (0.0-6.8); MEAN CORPUSCULAR HEMOGLOBIN 28.2 pg (28.0-34.0); MEAN CORPUSCULAR VOLUME 90.1 fl (80.0-100.0); MONOCYTES % 3.6 % (0.0-11.0); NEUTROPHILS # 6.9 # k/uL (1.4-7.7)
[2017-05-14 07:34] LABS: eGFR (African) > 60; eGFR (Non-African) > 60
--- NOTE | 2017-05-14 07:56 | Inpatient Progress Note ---
Subjective - Required Recertification Statement I anticipate X number of days because-include discharge plan: 2 - Review of Systems Subjective: Patient feeling ok this am. Has been in bed. Unsure if hip hurts or not. Objective - Exam Vitals and I&O: Vital Signs Temp 97.8 F 05/14/17 06:00 Pulse 106 H 05/14/17 06:00 Resp 16 05/14/17 06:00 BP 162/76 05/14/17 06:00 Pulse Ox 96 05/14/17 06:00 Intake & Output 05/13/17 05/13/17 05/14/17 11:59 23:59 11:59 Intake Total 60 780 Balance 60 780 Intake: IV 750 Left Antecubital 750 Oral 60 30 Other: Voiding Method Diaper Diaper # Voids 1 2 # Bowel Movements 1 General: Alert, Oriented to Person, Cooperative, No acute distress. No: Oriented to Place, Oriented to Time Lungs: Clear to auscultation, Normal air movement, Speaks full Sentences Cardiovascular: Regular rate - Results Results: Laboratory Results WBC 7.90 K/ul (4.00-12.00) 05/14/17 06:50 RBC 3.38 M/ul (3.90-5.20) L 05/14/17 06:50 Hgb 9.5 g/dL (12.0-16.0) L 05/14/17 06:50 Hct 30.4 % (34.5-46.5) L 05/14/17 06:50 MCV 90.1 fl (80.0-100.0) 05/14/17 06:50 MCH 28.2 pg (28.0-34.0) 05/14/17 06:50 MCHC 31.4 g/dL (30.0-36.0) 05/14/17 06:50 RDW 13.4 % (11.3-14.3) 05/14/17 06:50 Plt Count 287 K/mm3 (130-400) 05/14/17 06:50 Neut % (Auto) 87.3 % (39.0-79.0) H 05/14/17 06:50 Lymph % (Auto) 7.5 % (16.0-50.0) L 05/14/17 06:50 [place] % (Auto) 3.6 % (0.0-11.0) 05/14/17 06:50 Eos % (Auto) 0.4 % (0.0-6.8) 05/14/17 06:50 Baso % (Auto) 0.1 (0.0-1.5) 05/14/17 06:50 Neut # (Auto) 6.9 # k/uL (1.4-7.7) 05/14/17 06:50 Lymph # (Auto) 0.6 # k/uL (0.6-4.0) 05/14/17 06:50 [place] # (Auto) 0.3 # k/uL (0.0-0.9) 05/14/17 06:50 Eos # (Auto) 0.0 # k/uL (0.0-0.6) 05/14/17 06:50 Baso # (Auto) 0.0 # k/uL (0.0-0.5) 05/14/17 06:50 Reactive Lymphs % 1.0 % (0.0-5.0) 05/14/17 06:50 Reactive Lymphs # 0.1 # k/uL (0.0-0.8) 05/14/17 06:50 Sodium 135 mmol/L (136-145) L 05/14/17 06:50 Potassium 3.8 mmol/L (3.5-5.1) 05/14/17 06:50 Chloride 100 mmol/L (98-107) 05/14/17 06:50 Carbon Dioxide 27 mmol/L (22-30) 05/14/17 06:50 BUN 20 mg/dL (7-17) H 05/14/17 06:50 Creatinine 0.50 mg/dL (0.52-1.04) L 05/14/17 06:50 Estimated Creat Clear 57 05/14/17 06:50 Est GFR ( Amer) > 60 (60-) 05/14/17 06:50 Est GFR (Non-Af Amer) > 60 (60-) 05/14/17 06:50 Glucose 110 mg/dL (74-106) H 05/14/17 06:50 Calcium 8.3 mg/dL (8.4-10.2) L 05/14/17 06:50 Total Bilirubin 0.3 mg/dL (0.2-1.3) 05/12/17 14:25 AST 61 U/L (15-46) H 05/12/17 14:25 ALT 38 U/L (13-69) 05/12/17 14:25 Alkaline Phosphatase 95 U/L (38-126) 05/12/17 14:25 Total Protein 7.4 g/dL (6.3-8.2) 05/12/17 14:25 Albumin 4.1 g/dL (3.5-5.0) 05/12/17 14:25 Assessment/Plan - Assessment/Plan (1) Anemia Status: Acute Current Visit: Yes Qualifiers: Anemia type: unspecified type Qualified Code(s): D64.9 - Anemia, unspecified Plan: Patient's HGb dropped 2 gm - this could be acute bleeding or could be dilutional from her being dehydrated on admission. Stop Lovenox. Stool guaic ordered. No stool in rectal vault this am. Backorder iron studies. Monitor this closely. (2) Hyponatremia Status: Acute Current Visit: Yes Plan: Improved with IVF. Plan to stop IVF today and recheck tomorrow. (3) COPD (chronic obstructive pulmonary disease) Status: Acute Current Visit: No Qualifiers: COPD type: emphysema Emphysema type: panlobular Qualified Code(s): J43.1 - Panlobular emphysema Plan: Hypoxic on RA. Trial to wean off O2 this am yielded SAT drop to 86% on 1 liter. CXR on admission normal. Long time smoker. Will likely need O2 on discharge. (4) Right hip pain Status: Acute Current Visit: Yes Plan: Ct of hip negative. Plan PT eval today. Plan is to transfer to [facility] tomorrow.
[2017-05-14] MEDS: ASPIRIN 81 MG CHEW TAB PO SCH (09:49)
[2017-05-14] MEDS: OMEPRAZOLE 20 MG CAPSULE.DR PO SCH (09:49)
[2017-05-14] MEDS: SERTRALINE HCL 50 MG TABLET PO SCH ×2 (09:49→09:50)
[2017-05-14 11:01] LABS: APPEARANCE,URINE Clear (CLEAR); COLOR,URINE Yellow (YELLOW); OCCULT BLOOD,URINE Negative (NEGATIVE); PH URINE 5.5 (5.0 - 8.0); UROBILINOGEN URINE 0.2 Eu (0.2-1.0)
[2017-05-14] MEDS: LORazepam 0.5 MG TABLET PO PRN (18:30)
[2017-05-14] MEDS: rOPINIRole HCL 1 MG TABLET PO SCH (20:01)
[2017-05-15] MEDS: LORazepam 0.5 MG TABLET PO PRN ×2 (03:05→09:41)
[2017-05-15 07:28] LABS: MEAN CORPUSCULAR HEMOGLOBIN 28.2 pg (28.0-34.0); MEAN CORPUSCULAR VOLUME 88.5 fl (80.0-100.0)
[2017-05-15 07:47] LABS: eGFR (African) > 60; eGFR (Non-African) > 60
[2017-05-15 08:55] LABS: MONOCYTES % 3 % (0-11); SEGMENTED NEUTROPHILS % 86 % (39-79)
[2017-05-15] MEDS: ASPIRIN 81 MG CHEW TAB PO SCH (09:04)
[2017-05-15] MEDS: LEVOTHYROXINE SODIUM 100 MCG TABLET PO SCH (09:05)
[2017-05-15] MEDS: SERTRALINE HCL 50 MG TABLET PO SCH (09:05)
[2017-05-15] MEDS ORDERED: SALINE FLUSH 10 ML DISP.SYRIN IVF ONE ×3 (09:31→20:32)
[2017-05-15] MEDS: IPRATROPIUM/ALBUTEROL SULFATE 3 ML AMPUL.NEB NEB SCH ×5 (09:40→20:41)
[2017-05-15] MEDS: methylPREDNISolone SOD SUCC 40 MG/ML VIAL IVP SCH ×3 (09:51→20:35)
--- NOTE | 2017-05-15 10:35 | Diagnostic Imaging Report ---
[place]/MED SURG [facility] [address] [facility].[address] [address] Report Submission Date: May 15, 2017 8:36:07 AM PACK WORKER Patient Study Name: BASIM PENA Date: May 15, 2017 8:14:35 AM PACK WORKER MRN: [id number] Modality Type: CR Gender: F Description: CHEST : [birth year] Institution: [facility] Physician: [facility] /MED SURG Examination: PA and lateral chest. History: Evaluate lung soliman. Comparison exam: 12 May 2017 Findings: PA lateral chest demonstrate a normal cardiac and mediastinal silhouette. Vascular calcifications involving the aortic arch. No focal infiltrate. No blunting of the costophrenic margins. Blunting of the posterior sulci bilaterally. Osseous structures are appropriate for age. Impression: Posterior sulci blunting - likely chronic however cannot exclude small posterior effusion. No apical infiltrate. Electronically signed on May 15, 2017 8:36:07 AM PACK WORKER by: Rojelio NEVAREZ
[2017-05-15 15:03] LABS: MEAN CORPUSCULAR HEMOGLOBIN 28.2 pg (28.0-34.0); MEAN CORPUSCULAR VOLUME 88.5 fl (80.0-100.0)
--- NOTE | 2017-05-15 15:23 | Inpatient Progress Note ---
Subjective - Required Recertification Statement I anticipate X number of days because-include discharge plan: 3 - Review of Systems Subjective: Daughter reports patient breathing has gotten worse - breathing harder and more wheezing. Objective - Exam Vitals and I&O: Vital Signs Temp 97.8 F 05/15/17 14:00 Pulse 99 H 05/15/17 14:00 Resp 24 05/15/17 14:00 BP 138/72 05/15/17 14:00 Pulse Ox 98 05/15/17 09:55 Intake & Output 05/14/17 05/15/17 05/15/17 23:59 11:59 23:59 Intake Total 900 20 10 Balance 900 20 10 Weight 39.463 kg Intake: Oral 900 20 10 Other: Voiding Method Diaper # Voids 2 2 General: Alert, Oriented to Person, Mild distress Lungs: Wheezes Cardiovascular: Regular rate Skin: Other (bruising along inner R pelvis.) - Results Results: Laboratory Results WBC 5.90 K/ul (4.00-12.00) 05/15/17 14:50 RBC 2.84 M/ul (3.90-5.20) L 05/15/17 14:50 Hgb 8.0 g/dL (12.0-16.0) L 05/15/17 14:50 Hct 25.2 % (34.5-46.5) L 05/15/17 14:50 MCV 88.5 fl (80.0-100.0) 05/15/17 14:50 MCH 28.2 pg (28.0-34.0) 05/15/17 14:50 MCHC 31.9 g/dL (30.0-36.0) 05/15/17 14:50 RDW 13.5 % (11.3-14.3) 05/15/17 14:50 Plt Count 213 K/mm3 (130-400) 05/15/17 14:50 Neut % (Auto) 87.3 % (39.0-79.0) H 05/14/17 06:50 Lymph % (Auto) 7.5 % (16.0-50.0) L 05/14/17 06:50 [place] % (Auto) 3.6 % (0.0-11.0) 05/14/17 06:50 Eos % (Auto) 0.4 % (0.0-6.8) 05/14/17 06:50 Baso % (Auto) 0.1 (0.0-1.5) 05/14/17 06:50 Neut # (Auto) 6.9 # k/uL (1.4-7.7) 05/14/17 06:50 Lymph # (Auto) 0.6 # k/uL (0.6-4.0) 05/14/17 06:50 [place] # (Auto) 0.3 # k/uL (0.0-0.9) 05/14/17 06:50 Eos # (Auto) 0.0 # k/uL (0.0-0.6) 05/14/17 06:50 Baso # (Auto) 0.0 # k/uL (0.0-0.5) 05/14/17 06:50 Seg Neutrophils % 86 % (39-79) H 05/15/17 06:55 Band Neutrophils % 7 % (0-12) 05/15/17 06:55 Lymphocytes % 4 % (16-50) L 05/15/17 06:55 Reactive Lymphs % 1.0 % (0.0-5.0) 05/14/17 06:50 Monocytes % 3 % (0-11) 05/15/17 06:55 Reactive Lymphs # 0.1 # k/uL (0.0-0.8) 05/14/17 06:50 Plt Morphology Comment Normal (NORMAL) 05/15/17 06:55 RBC Morph Comment Normal (NORMAL) 05/15/17 06:55 Sodium 134 mmol/L (136-145) L 05/15/17 06:55 Potassium 3.7 mmol/L (3.5-5.1) 05/15/17 06:55 Chloride 100 mmol/L (98-107) 05/15/17 06:55 Carbon Dioxide 29 mmol/L (22-30) 05/15/17 06:55 BUN 19 mg/dL (7-17) H 05/15/17 06:55 Creatinine 0.50 mg/dL (0.52-1.04) L 05/15/17 06:55 Estimated Creat Clear 57 05/15/17 06:55 Est GFR ( Amer) > 60 (60-) 05/15/17 06:55 Est GFR (Non-Af Amer) > 60 (60-) 05/15/17 06:55 Glucose 122 mg/dL (74-106) H 05/15/17 06:55 Calcium 8.4 mg/dL (8.4-10.2) 05/15/17 06:55 Total Bilirubin 0.3 mg/dL (0.2-1.3) 05/12/17 14:25 AST 61 U/L (15-46) H 05/12/17 14:25 ALT 38 U/L (13-69) 05/12/17 14:25 Alkaline Phosphatase 95 U/L (38-126) 05/12/17 14:25 Total Protein 7.4 g/dL (6.3-8.2) 05/12/17 14:25 Albumin 4.1 g/dL (3.5-5.0) 05/12/17 14:25 Urine Color Yellow (YELLOW) 05/14/17 10:55 Urine Appearance Clear (CLEAR) 05/14/17 10:55 Urine pH 5.5 (5.0 - 8.0) 05/14/17 10:55 Ur Specific [place] 1.025 (1.010-1.030) 05/14/17 10:55 Urine Protein Trace mg/dL (NEGATIVE) 05/14/17 10:55 Urine Ketones 1+ mg/dL (NEGATIVE) H 05/14/17 10:55 Urine Occult Blood Negative (NEGATIVE) 05/14/17 10:55 Urine Nitrite Negative (NEGATIVE) 05/14/17 10:55 Urine Bilirubin Negative (NEGATIVE) 05/14/17 10:55 Urine Urobilinogen 0.2 Eu (0.2-1.0) 05/14/17 10:55 Ur Leukocyte Esterase Negative (NEGATIVE) 05/14/17 10:55 Urine Glucose Negative mg/dL (NEGATIVE) 05/14/17 10:55 Stool Guaiac Test Negative (NEGATIVE) 05/15/17 08:05 Assessment/Plan - Assessment/Plan (1) Anemia Status: Acute Current Visit: Yes Qualifiers: Anemia type: unspecified type Qualified Code(s): D64.9 - Anemia, unspecified Plan: Hgb down to 8.0. Guiac negative today. Get iron studies. Watch closely. (2) Hyponatremia Status: Acute Current Visit: Yes Plan: Stable (3) COPD (chronic obstructive pulmonary disease) Status: Acute Current Visit: No Qualifiers: COPD type: emphysema Emphysema type: panlobular Qualified Code(s): J43.1 - Panlobular emphysema Plan: Appears to be in exacerbation. CXR negative. Start IV solumedrol. Increase duonebs to q4hr. Watch closely. (4) Right hip pain Status: Acute Current Visit: Yes
[2017-05-15 17:01] LABS: SERUM IRON 14 ug/dL (37-145); TRANSFERRIN 219 mg/dL (200-360)
[2017-05-15] MEDS: rOPINIRole HCL 1 MG TABLET PO SCH (20:39)
[2017-05-16] MEDS: IPRATROPIUM/ALBUTEROL SULFATE 3 ML AMPUL.NEB NEB SCH ×7 (00:49→21:25)
[2017-05-16] MEDS: OMEPRAZOLE 20 MG CAPSULE.DR PO SCH ×2 (05:32→11:47)
[2017-05-16] MEDS: methylPREDNISolone SOD SUCC 40 MG/ML VIAL IVP SCH ×3 (05:35→21:23)
[2017-05-16 07:25] LABS: MEAN CORPUSCULAR HEMOGLOBIN 28.8 pg (28.0-34.0); MEAN CORPUSCULAR VOLUME 89.5 fl (80.0-100.0)
[2017-05-16 08:03] LABS: eGFR (African) > 60; eGFR (Non-African) > 60
[2017-05-16] MEDS ORDERED: FUROSEMIDE 40 MG/4 ML VIAL IVP ONE (08:29)
[2017-05-16 08:31] LABS: MONOCYTES % 1 % (0-11); SEGMENTED NEUTROPHILS % 94 % (39-79)
[2017-05-16] MEDS ORDERED: MORPHINE SULFATE 2 MG/ML PREFILLED SYR IVP PRN (08:41)
--- NOTE | 2017-05-16 08:51 | Inpatient Progress Note ---
Subjective - Required Recertification Statement I anticipate X number of days because-include discharge plan: 2 - Review of Systems Subjective: Patient doing poorly this am. Working harder to breathe. Responds by shaking head or one word answers. Objective - Exam Vitals and I&O: Vital Signs Temp 97.6 F 05/16/17 06:00 Pulse 94 H 05/16/17 06:00 Resp 20 05/16/17 06:00 BP 153/59 05/16/17 06:00 Pulse Ox 2 L 05/16/17 02:00 Intake & Output 05/15/17 05/15/17 05/16/17 11:59 23:59 11:59 Intake Total 20 260 44 Balance 20 260 44 Intake: IV 44 Left Antecubital 44 Oral 20 260 Other: Voiding Method Diaper Diaper # Voids 2 2 General: Alert, Oriented to Person, Moderate distress. No: Oriented to Place, Oriented to Time Lungs: Rhonchi Cardiovascular: Regular rate Extremities: No edema - Results Results: Laboratory Results WBC 8.10 K/ul (4.00-12.00) 05/16/17 06:50 RBC 3.00 M/ul (3.90-5.20) L 05/16/17 06:50 Hgb 8.6 g/dL (12.0-16.0) L 05/16/17 06:50 Hct 26.8 % (34.5-46.5) L 05/16/17 06:50 MCV 89.5 fl (80.0-100.0) 05/16/17 06:50 MCH 28.8 pg (28.0-34.0) 05/16/17 06:50 MCHC 32.1 g/dL (30.0-36.0) 05/16/17 06:50 RDW 13.6 % (11.3-14.3) 05/16/17 06:50 Plt Count 249 K/mm3 (130-400) 05/16/17 06:50 Neut % (Auto) 87.3 % (39.0-79.0) H 05/14/17 06:50 Lymph % (Auto) 7.5 % (16.0-50.0) L 05/14/17 06:50 [place] % (Auto) 3.6 % (0.0-11.0) 05/14/17 06:50 Eos % (Auto) 0.4 % (0.0-6.8) 05/14/17 06:50 Baso % (Auto) 0.1 (0.0-1.5) 05/14/17 06:50 Neut # (Auto) 6.9 # k/uL (1.4-7.7) 05/14/17 06:50 Lymph # (Auto) 0.6 # k/uL (0.6-4.0) 05/14/17 06:50 [place] # (Auto) 0.3 # k/uL (0.0-0.9) 05/14/17 06:50 Eos # (Auto) 0.0 # k/uL (0.0-0.6) 05/14/17 06:50 Baso # (Auto) 0.0 # k/uL (0.0-0.5) 05/14/17 06:50 Seg Neutrophils % 94 % (39-79) H 05/16/17 06:50 Band Neutrophils % 3 % (0-12) 05/16/17 06:50 Lymphocytes % 2 % (16-50) L 05/16/17 06:50 Reactive Lymphs % 1.0 % (0.0-5.0) 05/14/17 06:50 Monocytes % 1 % (0-11) 05/16/17 06:50 Reactive Lymphs # 0.1 # k/uL (0.0-0.8) 05/14/17 06:50 Plt Morphology Comment Normal (NORMAL) 05/16/17 06:50 RBC Morph Comment Normal (NORMAL) 05/16/17 06:50 Sodium 140 mmol/L (136-145) 05/16/17 06:50 Potassium 4.1 mmol/L (3.5-5.1) 05/16/17 06:50 Chloride 101 mmol/L (98-107) 05/16/17 06:50 Carbon Dioxide 32 mmol/L (22-30) H 05/16/17 06:50 BUN 25 mg/dL (7-17) H 05/16/17 06:50 Creatinine 0.60 mg/dL (0.52-1.04) 05/16/17 06:50 Estimated Creat Clear 47 05/16/17 06:50 Est GFR ( Amer) > 60 (60-) 12/29/17 06:50 Est GFR (Non-Af Amer) > 60 (60-) 05/16/17 06:50 Glucose 134 mg/dL (74-106) H 05/16/17 06:50 Calcium 9.0 mg/dL (8.4-10.2) 05/16/17 06:50 Iron 14 ug/dL (37-145) L 05/15/17 06:55 TIBC 245 ug/dL (250-425) L 05/15/17 06:55 % Saturation 6 % (20-50) L 05/15/17 06:55 Transferrin 219 mg/dL (200-360) 05/15/17 06:55 Total Bilirubin 0.4 mg/dL (0.2-1.3) 05/16/17 06:50 AST 127 U/L (15-46) H 05/16/17 06:50 ALT 74 U/L (13-69) H 05/16/17 06:50 Alkaline Phosphatase 70 U/L (38-126) 05/16/17 06:50 NT-Pro-B Natriuret Pep 45832.1 pg/mL (15.0-450.0) H 05/16/17 06:50 Total Protein 6.4 g/dL (6.3-8.2) 05/16/17 06:50 Albumin 3.4 g/dL (3.5-5.0) L 05/16/17 06:50 Urine Color Yellow (YELLOW) 05/14/17 10:55 Urine Appearance Clear (CLEAR) 05/14/17 10:55 Urine pH 5.5 (5.0 - 8.0) 05/14/17 10:55 Ur Specific [place] 1.025 (1.010-1.030) 05/14/17 10:55 Urine Protein Trace mg/dL (NEGATIVE) 05/14/17 10:55 Urine Ketones 1+ mg/dL (NEGATIVE) H 05/14/17 10:55 Urine Occult Blood Negative (NEGATIVE) 05/14/17 10:55 Urine Nitrite Negative (NEGATIVE) 05/14/17 10:55 Urine Bilirubin Negative (NEGATIVE) 05/14/17 10:55 Urine Urobilinogen 0.2 Eu (0.2-1.0) 05/14/17 10:55 Ur Leukocyte Esterase Negative (NEGATIVE) 05/14/17 10:55 Urine Glucose Negative mg/dL (NEGATIVE) 05/14/17 10:55 Stool Guaiac Test Negative (NEGATIVE) 05/15/17 08:05 Assessment/Plan - Assessment/Plan (1) Anemia Status: Acute Current Visit: Yes Qualifiers: Anemia type: unspecified type Qualified Code(s): D64.9 - Anemia, unspecified Plan: Stable. Labs show iron deficiency. (2) Hyponatremia Status: Acute Current Visit: Yes (3) COPD (chronic obstructive pulmonary disease) Status: Acute Current Visit: No Qualifiers: COPD type: emphysema Emphysema type: panlobular Qualified Code(s): J43.1 - Panlobular emphysema (4) Right hip pain Status: Acute Current Visit: Yes (5) CHF (congestive heart failure) Status: Acute Current Visit: Yes Plan: BNP 12,000 today. Plan IV lasix and po lisinopril. Discussed poor prognosis with patient's daughter, Codie. Will do what we can here but most importantly keep patient comfortable. Morphine for air hunger. Scopalamine patch for secretions.
[2017-05-16] MEDS: LISINOPRIL 5 MG TABLET PO SCH (10:50)
[2017-05-16] MEDS: SCOPOLAMINE HYDROBROMIDE 1.5MG/72HR PATCH TD SCH (10:51)
[2017-05-16] MEDS ORDERED: SALINE FLUSH 10 ML DISP.SYRIN IVF ONE ×4 (12:47→21:20)
[2017-05-16] MEDS: LORazepam 0.5 MG TABLET PO PRN (12:50)
[2017-05-16] MEDS ORDERED: LORazepam 2 MG/ML VIAL ONE (16:17)
[2017-05-16] MEDS ORDERED: LORazepam 2 MG/ML VIAL IVP SCH (18:00)
[2017-05-17] MEDS: IPRATROPIUM/ALBUTEROL SULFATE 3 ML AMPUL.NEB NEB SCH ×6 (01:27→21:36)
[2017-05-17] MEDS ORDERED: SALINE FLUSH 10 ML DISP.SYRIN IVF ONE ×5 (02:23→20:59)
[2017-05-17] MEDS ORDERED: LORazepam 2 MG/ML VIAL ONE ×4 (05:47→21:02)
[2017-05-17] MEDS: LORazepam 2 MG/ML VIAL IVP PRN ×4 (05:53→22:00)
[2017-05-17] MEDS: methylPREDNISolone SOD SUCC 40 MG/ML VIAL IVP SCH (05:54)
--- NOTE | 2017-05-17 09:02 | Inpatient Progress Note ---
Subjective - Required Recertification Statement I anticipate X number of days because-include discharge plan: 1 - Review of Systems Subjective: Patient continues to decline. Not very responsive this am. Had a bad reaction to morphine yesterday. Ativan keeping comfortable. Objective - Exam Vitals and I&O: Vital Signs Temp 98.8 F 05/17/17 06:00 Pulse 101 H 05/17/17 06:00 Resp 24 05/17/17 06:00 BP 188/104 05/17/17 06:00 Pulse Ox 90 L 05/17/17 06:00 Intake & Output 05/16/17 05/16/17 05/17/17 11:59 23:59 11:59 Intake Total 138 144 Balance 138 144 Intake: IV 88 44 Left Antecubital 88 44 Oral 50 100 Other: Voiding Method Diaper # Voids 2 General: Mild distress. No: Alert Lungs: Rhonchi Cardiovascular: Regular rate - Results Results: Laboratory Results WBC 8.10 K/ul (4.00-12.00) 05/16/17 06:50 RBC 3.00 M/ul (3.90-5.20) L 05/16/17 06:50 Hgb 8.6 g/dL (12.0-16.0) L 05/16/17 06:50 Hct 26.8 % (34.5-46.5) L 05/16/17 06:50 MCV 89.5 fl (80.0-100.0) 05/16/17 06:50 MCH 28.8 pg (28.0-34.0) 05/16/17 06:50 MCHC 32.1 g/dL (30.0-36.0) 05/16/17 06:50 RDW 13.6 % (11.3-14.3) 05/16/17 06:50 Plt Count 249 K/mm3 (130-400) 05/16/17 06:50 Neut % (Auto) 87.3 % (39.0-79.0) H 05/14/17 06:50 Lymph % (Auto) 7.5 % (16.0-50.0) L 05/14/17 06:50 [place] % (Auto) 3.6 % (0.0-11.0) 05/14/17 06:50 Eos % (Auto) 0.4 % (0.0-6.8) 05/14/17 06:50 Baso % (Auto) 0.1 (0.0-1.5) 05/14/17 06:50 Neut # (Auto) 6.9 # k/uL (1.4-7.7) 05/14/17 06:50 Lymph # (Auto) 0.6 # k/uL (0.6-4.0) 05/14/17 06:50 [place] # (Auto) 0.3 # k/uL (0.0-0.9) 05/14/17 06:50 Eos # (Auto) 0.0 # k/uL (0.0-0.6) 05/14/17 06:50 Baso # (Auto) 0.0 # k/uL (0.0-0.5) 05/14/17 06:50 Seg Neutrophils % 94 % (39-79) H 05/16/17 06:50 Band Neutrophils % 3 % (0-12) 05/16/17 06:50 Lymphocytes % 2 % (16-50) L 05/16/17 06:50 Reactive Lymphs % 1.0 % (0.0-5.0) 05/14/17 06:50 Monocytes % 1 % (0-11) 05/16/17 06:50 Reactive Lymphs # 0.1 # k/uL (0.0-0.8) 05/14/17 06:50 Plt Morphology Comment Normal (NORMAL) 05/16/17 06:50 RBC Morph Comment Normal (NORMAL) 05/16/17 06:50 Sodium 140 mmol/L (136-145) 05/16/17 06:50 Potassium 4.1 mmol/L (3.5-5.1) 05/16/17 06:50 Chloride 101 mmol/L (98-107) 05/16/17 06:50 Carbon Dioxide 32 mmol/L (22-30) H 05/16/17 06:50 BUN 25 mg/dL (7-17) H 05/16/17 06:50 Creatinine 0.60 mg/dL (0.52-1.04) 05/16/17 06:50 Estimated Creat Clear 47 05/16/17 06:50 Est GFR ( Amer) > 60 (60-) 05/16/17 06:50 Est GFR (Non-Af Amer) > 60 (60-) 05/16/17 06:50 Glucose 134 mg/dL (74-106) H 05/16/17 06:50 Calcium 9.0 mg/dL (8.4-10.2) 05/16/17 06:50 Iron 14 ug/dL (37-145) L 05/15/17 06:55 TIBC 245 ug/dL (250-425) L 05/15/17 06:55 % Saturation 6 % (20-50) L 05/15/17 06:55 Transferrin 219 mg/dL (200-360) 05/15/17 06:55 Total Bilirubin 0.4 mg/dL (0.2-1.3) 05/16/17 06:50 AST 127 U/L (15-46) H 05/16/17 06:50 ALT 74 U/L (13-69) H 05/16/17 06:50 Alkaline Phosphatase 70 U/L (38-126) 05/16/17 06:50 NT-Pro-B Natriuret Pep 54665.1 pg/mL (15.0-450.0) H 05/16/17 06:50 Total Protein 6.4 g/dL (6.3-8.2) 05/16/17 06:50 Albumin 3.4 g/dL (3.5-5.0) L 05/16/17 06:50 Urine Color Yellow (YELLOW) 05/14/17 10:55 Urine Appearance Clear (CLEAR) 05/14/17 10:55 Urine pH 5.5 (5.0 - 8.0) 05/14/17 10:55 Ur Specific [place] 1.025 (1.010-1.030) 05/14/17 10:55 Urine Protein Trace mg/dL (NEGATIVE) 05/14/17 10:55 Urine Ketones 1+ mg/dL (NEGATIVE) H 05/14/17 10:55 Urine Occult Blood Negative (NEGATIVE) 05/14/17 10:55 Urine Nitrite Negative (NEGATIVE) 05/14/17 10:55 Urine Bilirubin Negative (NEGATIVE) 05/14/17 10:55 Urine Urobilinogen 0.2 Eu (0.2-1.0) 05/14/17 10:55 Ur Leukocyte Esterase Negative (NEGATIVE) 05/14/17 10:55 Urine Glucose Negative mg/dL (NEGATIVE) 05/14/17 10:55 Stool Guaiac Test Negative (NEGATIVE) 05/15/17 08:05 Assessment/Plan - Assessment/Plan (1) Anemia Status: Acute Current Visit: Yes Qualifiers: Anemia type: unspecified type Qualified Code(s): D64.9 - Anemia, unspecified (2) Hyponatremia Status: Acute Current Visit: Yes (3) COPD (chronic obstructive pulmonary disease) Status: Acute Current Visit: No Qualifiers: COPD type: emphysema Emphysema type: panlobular Qualified Code(s): J43.1 - Panlobular emphysema (4) Right hip pain Status: Acute Current Visit: Yes (5) CHF (congestive heart failure) Status: Acute Current Visit: Yes Qualifiers: Congestive heart failure type: unspecified congestive heart failure type Congestive heart failure chronicity: acute Qualified Code(s): I50.9 - Heart failure, unspecified Plan: Patient being kept comfortable. Will continue to support the family. IV Ativan prn. Expect in the next day or 2.
[2017-05-17] MEDS: LISINOPRIL 5 MG TABLET PO SCH (10:18)
[2017-05-17] MEDS ORDERED: HYDROmorphone HCL/PF 2 MG/ML DISP.SYRIN ONE (20:59)
[2017-05-17] MEDS: HYDROmorphone HCL/PF 2 MG/ML DISP.SYRIN IVP PRN (22:00)
[2017-05-18] MEDS: IPRATROPIUM/ALBUTEROL SULFATE 3 ML AMPUL.NEB NEB SCH ×3 (02:09→11:11)
[2017-05-18] MEDS ORDERED: LORazepam 2 MG/ML VIAL ONE ×3 (08:33→17:41)
[2017-05-18] MEDS ORDERED: SALINE FLUSH 10 ML DISP.SYRIN IVF ONE ×3 (08:34→17:41)
[2017-05-18] MEDS: LORazepam 2 MG/ML VIAL IVP PRN ×3 (08:39→18:00)
[2017-05-18] MEDS ORDERED: IPRATROPIUM/ALBUTEROL SULFATE 3 ML AMPUL.NEB NEB PRN (10:44)
[2017-05-19] MEDS ORDERED: SALINE FLUSH 10 ML DISP.SYRIN IVF ONE ×4 (08:44→20:46)
[2017-05-19] MEDS ORDERED: LORazepam 2 MG/ML VIAL ONE ×2 (08:44→17:09)
[2017-05-19] MEDS: SCOPOLAMINE HYDROBROMIDE 1.5MG/72HR PATCH TD SCH (08:45)
[2017-05-19] MEDS: LORazepam 2 MG/ML VIAL IVP PRN ×2 (08:47→17:12)
--- NOTE | 2017-05-19 10:23 | Inpatient Progress Note ---
Subjective - Required Recertification Statement I anticipate X number of days because-include discharge plan: 1 - Review of Systems Subjective: Patient continues to be unresponsive. Family feels she is comfortable. Objective - Exam Vitals and I&O: Vital Signs Temp 96.6 F L 05/17/17 18:00 Pulse 101 H 05/18/17 10:00 Resp 14 05/18/17 21:03 BP 148/76 05/17/17 18:00 Pulse Ox 92 05/17/17 18:00 Intake & Output 05/18/17 05/18/17 05/19/17 11:59 23:59 11:59 Intake Total 50 50 0 Output Total 0 Balance 50 50 0 Intake: Oral 50 50 0 Output: Urine 0 Other: Voiding Method Diaper Diaper General: Mild distress. No: Alert Lungs: Rhonchi Cardiovascular: Regular rate - Results Results: Laboratory Results WBC 8.10 K/ul (4.00-12.00) 05/16/17 06:50 RBC 3.00 M/ul (3.90-5.20) L 05/16/17 06:50 Hgb 8.6 g/dL (12.0-16.0) L 05/16/17 06:50 Hct 26.8 % (34.5-46.5) L 05/16/17 06:50 MCV 89.5 fl (80.0-100.0) 05/16/17 06:50 MCH 28.8 pg (28.0-34.0) 05/16/17 06:50 MCHC 32.1 g/dL (30.0-36.0) 05/16/17 06:50 RDW 13.6 % (11.3-14.3) 05/16/17 06:50 Plt Count 249 K/mm3 (130-400) 05/16/17 06:50 Neut % (Auto) 87.3 % (39.0-79.0) H 05/14/17 06:50 Lymph % (Auto) 7.5 % (16.0-50.0) L 05/14/17 06:50 [place] % (Auto) 3.6 % (0.0-11.0) 05/14/17 06:50 Eos % (Auto) 0.4 % (0.0-6.8) 05/14/17 06:50 Baso % (Auto) 0.1 (0.0-1.5) 05/14/17 06:50 Neut # (Auto) 6.9 # k/uL (1.4-7.7) 05/14/17 06:50 Lymph # (Auto) 0.6 # k/uL (0.6-4.0) 05/14/17 06:50 [place] # (Auto) 0.3 # k/uL (0.0-0.9) 05/14/17 06:50 Eos # (Auto) 0.0 # k/uL (0.0-0.6) 05/14/17 06:50 Baso # (Auto) 0.0 # k/uL (0.0-0.5) 05/14/17 06:50 Seg Neutrophils % 94 % (39-79) H 05/16/17 06:50 Band Neutrophils % 3 % (0-12) 05/16/17 06:50 Lymphocytes % 2 % (16-50) L 05/16/17 06:50 Reactive Lymphs % 1.0 % (0.0-5.0) 05/14/17 06:50 Monocytes % 1 % (0-11) 05/16/17 06:50 Reactive Lymphs # 0.1 # k/uL (0.0-0.8) 05/14/17 06:50 Plt Morphology Comment Normal (NORMAL) 05/16/17 06:50 RBC Morph Comment Normal (NORMAL) 05/16/17 06:50 Sodium 140 mmol/L (136-145) 05/16/17 06:50 Potassium 4.1 mmol/L (3.5-5.1) 05/16/17 06:50 Chloride 101 mmol/L (98-107) 05/16/17 06:50 Carbon Dioxide 32 mmol/L (22-30) H 05/16/17 06:50 BUN 25 mg/dL (7-17) H 05/16/17 06:50 Creatinine 0.60 mg/dL (0.52-1.04) 05/16/17 06:50 Estimated Creat Clear 47 05/16/17 06:50 Est GFR ( Amer) > 60 (60-) 05/16/17 06:50 Est GFR (Non-Af Amer) > 60 (60-) 05/16/17 06:50 Glucose 134 mg/dL (74-106) H 05/16/17 06:50 Calcium 9.0 mg/dL (8.4-10.2) 05/16/17 06:50 Iron 14 ug/dL (37-145) L 05/15/17 06:55 TIBC 245 ug/dL (250-425) L 05/15/17 06:55 % Saturation 6 % (20-50) L 05/15/17 06:55 Transferrin 219 mg/dL (200-360) 05/15/17 06:55 Total Bilirubin 0.4 mg/dL (0.2-1.3) 05/16/17 06:50 AST 127 U/L (15-46) H 05/16/17 06:50 ALT 74 U/L (13-69) H 05/16/17 06:50 Alkaline Phosphatase 70 U/L (38-126) 05/16/17 06:50 NT-Pro-B Natriuret Pep 30126.1 pg/mL (15.0-450.0) H 05/16/17 06:50 Total Protein 6.4 g/dL (6.3-8.2) 05/16/17 06:50 Albumin 3.4 g/dL (3.5-5.0) L 05/16/17 06:50 Urine Color Yellow (YELLOW) 05/14/17 10:55 Urine Appearance Clear (CLEAR) 05/14/17 10:55 Urine pH 5.5 (5.0 - 8.0) 05/14/17 10:55 Ur Specific [place] 1.025 (1.010-1.030) 05/14/17 10:55 Urine Protein Trace mg/dL (NEGATIVE) 05/14/17 10:55 Urine Ketones 1+ mg/dL (NEGATIVE) H 05/14/17 10:55 Urine Occult Blood Negative (NEGATIVE) 05/14/17 10:55 Urine Nitrite Negative (NEGATIVE) 05/14/17 10:55 Urine Bilirubin Negative (NEGATIVE) 05/14/17 10:55 Urine Urobilinogen 0.2 Eu (0.2-1.0) 05/14/17 10:55 Ur Leukocyte Esterase Negative (NEGATIVE) 05/14/17 10:55 Urine Glucose Negative mg/dL (NEGATIVE) 05/14/17 10:55 Stool Guaiac Test Negative (NEGATIVE) 05/15/17 08:05 Assessment/Plan - Assessment/Plan (1) Anemia Status: Acute Current Visit: Yes Qualifiers: Anemia type: unspecified type Qualified Code(s): D64.9 - Anemia, unspecified (2) Hyponatremia Status: Acute Current Visit: Yes (3) COPD (chronic obstructive pulmonary disease) Status: Acute Current Visit: No Qualifiers: COPD type: emphysema Emphysema type: panlobular Qualified Code(s): J43.1 - Panlobular emphysema Plan: Expect pateint to pass soon. Requiring IV ativan to keep sedated. Will need to consider other admission type if she doesn't soon. (4) Right hip pain Status: Acute Current Visit: Yes (5) CHF (congestive heart failure) Status: Acute Current Visit: Yes Qualifiers: Congestive heart failure type: unspecified congestive heart failure type Congestive heart failure chronicity: acute Qualified Code(s): I50.9 - Heart failure, unspecified
--- NOTE | 2017-05-19 10:23 | Inpatient Progress Note ---
Subjective - Required Recertification Statement I anticipate X number of days because-include discharge plan: 2 - Review of Systems Subjective: THIS NOTE IS FROM 05-18-17 Patient resting comfortable. Nonresponsive. Objective - Exam Vitals and I&O: Vital Signs Temp 96.6 F L 05/17/17 18:00 Pulse 101 H 05/18/17 10:00 Resp 14 05/18/17 21:03 BP 148/76 05/17/17 18:00 Pulse Ox 92 05/17/17 18:00 Intake & Output 05/18/17 05/18/17 05/19/17 11:59 23:59 11:59 Intake Total 50 50 0 Output Total 0 Balance 50 50 0 Intake: Oral 50 50 0 Output: Urine 0 Other: Voiding Method Diaper Diaper General: Mild distress. No: Alert Lungs: Rhonchi Cardiovascular: Regular rate - Results Results: Laboratory Results WBC 8.10 K/ul (4.00-12.00) 05/16/17 06:50 RBC 3.00 M/ul (3.90-5.20) L 05/16/17 06:50 Hgb 8.6 g/dL (12.0-16.0) L 05/16/17 06:50 Hct 26.8 % (34.5-46.5) L 05/16/17 06:50 MCV 89.5 fl (80.0-100.0) 05/16/17 06:50 MCH 28.8 pg (28.0-34.0) 05/16/17 06:50 MCHC 32.1 g/dL (30.0-36.0) 05/16/17 06:50 RDW 13.6 % (11.3-14.3) 05/16/17 06:50 Plt Count 249 K/mm3 (130-400) 05/16/17 06:50 Neut % (Auto) 87.3 % (39.0-79.0) H 05/14/17 06:50 Lymph % (Auto) 7.5 % (16.0-50.0) L 05/14/17 06:50 [place] % (Auto) 3.6 % (0.0-11.0) 05/14/17 06:50 Eos % (Auto) 0.4 % (0.0-6.8) 05/14/17 06:50 Baso % (Auto) 0.1 (0.0-1.5) 05/14/17 06:50 Neut # (Auto) 6.9 # k/uL (1.4-7.7) 05/14/17 06:50 Lymph # (Auto) 0.6 # k/uL (0.6-4.0) 05/14/17 06:50 [place] # (Auto) 0.3 # k/uL (0.0-0.9) 05/14/17 06:50 Eos # (Auto) 0.0 # k/uL (0.0-0.6) 05/14/17 06:50 Baso # (Auto) 0.0 # k/uL (0.0-0.5) 05/14/17 06:50 Seg Neutrophils % 94 % (39-79) H 05/16/17 06:50 Band Neutrophils % 3 % (0-12) 05/16/17 06:50 Lymphocytes % 2 % (16-50) L 05/16/17 06:50 Reactive Lymphs % 1.0 % (0.0-5.0) 05/14/17 06:50 Monocytes % 1 % (0-11) 05/16/17 06:50 Reactive Lymphs # 0.1 # k/uL (0.0-0.8) 05/14/17 06:50 Plt Morphology Comment Normal (NORMAL) 05/16/17 06:50 RBC Morph Comment Normal (NORMAL) 05/16/17 06:50 Sodium 140 mmol/L (136-145) 05/16/17 06:50 Potassium 4.1 mmol/L (3.5-5.1) 05/16/17 06:50 Chloride 101 mmol/L (98-107) 05/16/17 06:50 Carbon Dioxide 32 mmol/L (22-30) H 05/16/17 06:50 BUN 25 mg/dL (7-17) H 05/16/17 06:50 Creatinine 0.60 mg/dL (0.52-1.04) 05/16/17 06:50 Estimated Creat Clear 47 05/16/17 06:50 Est GFR ( Amer) > 60 (60-) 05/16/17 06:50 Est GFR (Non-Af Amer) > 60 (60-) 05/16/17 06:50 Glucose 134 mg/dL (74-106) H 05/16/17 06:50 Calcium 9.0 mg/dL (8.4-10.2) 05/16/17 06:50 Iron 14 ug/dL (37-145) L 05/15/17 06:55 TIBC 245 ug/dL (250-425) L 05/15/17 06:55 % Saturation 6 % (20-50) L 05/15/17 06:55 Transferrin 219 mg/dL (200-360) 05/15/17 06:55 Total Bilirubin 0.4 mg/dL (0.2-1.3) 05/16/17 06:50 AST 127 U/L (15-46) H 05/16/17 06:50 ALT 74 U/L (13-69) H 05/16/17 06:50 Alkaline Phosphatase 70 U/L (38-126) 05/16/17 06:50 NT-Pro-B Natriuret Pep 93520.1 pg/mL (15.0-450.0) H 05/16/17 06:50 Total Protein 6.4 g/dL (6.3-8.2) 05/16/17 06:50 Albumin 3.4 g/dL (3.5-5.0) L 05/16/17 06:50 Urine Color Yellow (YELLOW) 05/14/17 10:55 Urine Appearance Clear (CLEAR) 05/14/17 10:55 Urine pH 5.5 (5.0 - 8.0) 05/14/17 10:55 Ur Specific [place] 1.025 (1.010-1.030) 05/14/17 10:55 Urine Protein Trace mg/dL (NEGATIVE) 05/14/17 10:55 Urine Ketones 1+ mg/dL (NEGATIVE) H 05/14/17 10:55 Urine Occult Blood Negative (NEGATIVE) 05/14/17 10:55 Urine Nitrite Negative (NEGATIVE) 05/14/17 10:55 Urine Bilirubin Negative (NEGATIVE) 05/14/17 10:55 Urine Urobilinogen 0.2 Eu (0.2-1.0) 05/14/17 10:55 Ur Leukocyte Esterase Negative (NEGATIVE) 05/14/17 10:55 Urine Glucose Negative mg/dL (NEGATIVE) 05/14/17 10:55 Stool Guaiac Test Negative (NEGATIVE) 05/15/17 08:05 Assessment/Plan - Assessment/Plan (1) Anemia Status: Acute Current Visit: Yes Qualifiers: Anemia type: unspecified type Qualified Code(s): D64.9 - Anemia, unspecified (2) Hyponatremia Status: Acute Current Visit: Yes (3) COPD (chronic obstructive pulmonary disease) Status: Acute Current Visit: No Qualifiers: COPD type: emphysema Emphysema type: panlobular Qualified Code(s): J43.1 - Panlobular emphysema (4) Right hip pain Status: Acute Current Visit: Yes (5) CHF (congestive heart failure) Status: Acute Current Visit: Yes Qualifiers: Congestive heart failure type: unspecified congestive heart failure type Congestive heart failure chronicity: acute Qualified Code(s): I50.9 - Heart failure, unspecified Plan: Continue to keep patient comfortable with IV ativan and dilaudid.
[2017-05-19] MEDS ORDERED: HYDROmorphone HCL/PF 2 MG/ML DISP.SYRIN ONE (20:47)
[2017-05-19] MEDS: HYDROmorphone HCL/PF 2 MG/ML DISP.SYRIN IVP PRN (20:56)
[2017-05-19 22:01] VITALS: BP 80/38
--- NOTE | 2017-05-20 07:26 | Discharge Summary ---
Discharge Summary - Discharge Sumary History of Present Illness: This is an 86 year old female who is admitted due to dehydration and ataxia. She had been slowly weaker over the past several weeks and this morning, was unable to stand, specifically with her right leg. She had not had any falls recently and was able to ambulate with a walker. She has been living with her grandson. She is not eating well, nor drinking well. She is noted to have a sodium of 126 today, and she is admitted due to hyponatremia, dehydration and family would like to be seen by licensed social worker tomorrow for evaluation for placement. Condition at Discharge: Home Medications: Ambulatory Orders Medication Instructions Recorded Aspirin [Westley] 81 mg PO DAILY 30 Days tab.chew 08/28/12 Ipratropium/Albuterol Sulfate 3 ml INH QID 08/06/15 [Duoneb] Pramipexole Di-HCl [Mirapex] 0.125 mg PO PM 08/06/15 Levothyroxine Sodium [Unithroid] 100 mcg PO QDAY 08/31/16 Melatonin 5 mg PO HS 01/06/17 Consultations this Visit: None Procedures this Visit: None Allergies/Adverse Reactions: Allergies Allergy/AdvReac Type Severity Reaction Status Date / Time codeine [Codeine] Allergy Severe Hallucinati Verified 05/12/17 11:00 ons Discharge Summary: Patient was admitted to Acute Care with dehydration, weakness and hyponatremia. Her sodium corrected but patient developed anemia 8.0 to 8.6. Stool was guiac negative. Iron studies showed iron deficiency. Due to poor nutrition it was likely this was baseline for patient and her original hemoglobin was concentrated on admission. She developed wheezing and dyspnea. CXR negative. Started on IV solumedrol and duonebs. Patient developed CHF with BNP 12,000. She was given IV lasix and started on lisinopril. Due to poor prognosis and mentation family elected not to be agressive with her care but agreed to IV steroids, IV lasix, duonebs, and Oxygen. When patient failed to respond to these measures, the steroids and duonebs were stopped. IV ativan and diluadid were ordered to keep patient comfortable. She peacefully with family at bedside. Hospital Course: Discharge Dx: secondary to respiratory failure secondary to COPD with CHF.
[2017-05-20 08:19] LABS: ABG PH 7.36 (7.35-7.45)
== END 2017-05-20 03:45 | disposition expired | DRG 189 ==
LOC: ED 09:00 → SOUTH 15:10
PROVIDERS: ADMIT Family Medicine; ATTEND Family Medicine
DX: J96.00 Acute respiratory failure, unspecified whether with hypoxia or hypercapnia (principal); J44.9 Chronic obstructive pulmonary disease, unspecified; I50.9 Heart failure, unspecified; E86.0 Dehydration; R27.0 Ataxia, unspecified
CPT/HCPCS: 36415; 36600; 71010; 71020; 73521; 73562; 80048; 80053; 81002; 82270; 82803; 83540; 83550; 83880; 84466; 85025; 85027; 94640; 94760; 99232; 99238; 99284; J1170; J1650; J1940; J2060; J2270; J2920; A9270-GY; J1030; J7030; S1016